=== PATIENT | male | born 1970 | race Caucasian/White ===

== ENCOUNTER → 2021-08-09 18:10 | Outpatient (CLI) | payer BC, SELFPAY ==
[2021-08-09 18:47] LABS: Alanine Aminotransferase 17 U/L (12-78); Albumin Level 4.3 g/dl (3.5-5.0); Albumin/Globulin Ratio 1.5 (1.1-1.8); Alkaline Phosphatase 84 U/L (38-126); Aspartate Amino Transferase 29 U/L (17-59); Basophils # 0.3 K/mm3 (0-0.2); Basophils % 2.4 % (0.1-2.0); Bilirubin,Total 0.4 mg/dl (0.2-1.3); Blood Urea Nitrogen 12 mg/dl (9-20); Calcium 9.8 mg/dl (8.4-10.2); Carbon Dioxide 29 mmol/L (22.0-30.0); Chloride 97 mmol/L (98-107); Chol/HDL Ratio 4.6 (1-3.5); Cholesterol 218 mg/dl (140-200); Eosinophils # 0.5 K/mm3 (0.0-0.4); Estimated Glomerular Filt Rate 102 ml/min (>60); GFR (African American) 124 ML/MIN (>60); Globulin 2.8 g/dL (1.3-3.2); Glucose 269 mg/dl (74-100); HDL Cholesterol 47 mg/dl (40-60); Hematocrit 47.1 % (42.0-52.0); Hemoglobin 15.9 g/dL (14.1-18.0); Lymphocytes # 2.7 K/mm3 (0.7-4.5); Lymphocytes % 25.7 % (10-50); Mean Corpuscular HGB Conc 33.7 g/dL (31.8-35.4); Mean Corpuscular Hemoglobin 28.6 pg (27.0-31.2); Mean Corpuscular Volume 84.9 fl (80-94); Mean Platelet Volume 9.2 fl (7.4-10.4); Monocytes # 0.5 K/mm3 (0.1-1.0); Monocytes % 4.7 % (1.7-9.3); Neutrophils # 6.5 K/mm3 (1.8-7.8); Neutrophils % 62.3 % (37.0-80.0); Platelet Count 266 K/mm3 (142-424); Red Blood Count 5.55 M/mm3 (4.60-6.20); Red Cell Distribution Width 13.9 % (11.5-17.5); Sodium 135 mmol/L (136-145); Total Protein,Serum 7.1 g/dl (6.3-8.2); Triglycerides 247 mg/dl (30-150); VLDL Cholesterol 49 mg/dL (0-40); White Blood Count 10.5 K/mm3 (4.8-10.8)
[2021-08-09 18:58] LABS: Direct LDL Cholesterol 147.61 mg/dL (100-129)
[2021-08-09 19:03] LABS: Free T4 (Free Thyroxine) 1.23 ng/dl (0.78-2.19)
[2021-08-09 19:04] LABS: 25-OH Vitamin D, Total 22.1 ng/mL (30-100)
[2021-08-09 19:18] LABS: Prostate Specific Ag Screen 0.4 ng/ml (0.0-4.0)
== END ==
PROVIDERS: Visit Provider Nurse Practitioner Family
DX: R10.9 Unspecified abdominal pain (principal); E55.9 Vitamin D deficiency, unspecified; Z12.5 Encounter for screening for malignant neoplasm of prostate
CPT/HCPCS: 80053; 80061; 82306; 84439; 84443; 85025; G0103

== ENCOUNTER → 2021-09-08 09:51 | Outpatient (CLI) | payer BC, SELFPAY ==
--- NOTE | 2021-09-08 09:52 | CT_ITS ---
PROCEDURE INFORMATION: Exam: CT Abdomen And Pelvis With Contrast Exam date and time: 09/08/2021 9:52 AM Age: 51 years old Clinical indication: Abdominal pain TECHNIQUE: Imaging protocol: Computed tomography of the abdomen and pelvis with contrast. Radiation optimization: All CT scans at this facility use at least one of these dose optimization techniques: automated exposure control; mA and/or kV adjustment per patient size (includes targeted exams where dose is matched to clinical indication); or iterative reconstruction. Contrast material: ISOVUE; Contrast volume: 75 ml; Contrast route: IV; COMPARISON: No relevant prior studies available. FINDINGS: Liver: No mass. Gallbladder and bile ducts: Unremarkable. No ductal dilation. Pancreas: Normal. No ductal dilation. Spleen: Normal. No splenomegaly. Adrenal glands: Normal. No mass. Kidneys and ureters: Normal. No hydronephrosis. Stomach and bowel: No acute findings. No obstruction. No mucosal thickening. Colonic diverticulosis without acute diverticulitis. Appendix: No evidence of appendicitis. Intraperitoneal space: Unremarkable. No free air. No significant fluid collection. Vasculature: No abdominal aortic aneurysm. Lymph nodes: No significant adenopathy. Urinary bladder: Unremarkable as visualized. Reproductive: Unremarkable as visualized. Bones/joints: No acute findings. Soft tissues: Unremarkable. IMPRESSION: No acute findings.
[2021-09-08 10:24] LABS: Blood Urea Nitrogen 7 mg/dl (9-20); Estimated Glomerular Filt Rate 102 ml/min (>60); GFR (African American) 124 ML/MIN (>60)
== END ==
PROVIDERS: PCP Emergency Medicine; Visit Provider Surgery
DX: R10.9 Unspecified abdominal pain (principal)
CPT/HCPCS: 36415; 74177; 82565; 84520; Q9967

== ENCOUNTER → 2022-02-08 09:37 | Outpatient (CLI) | payer BC, SELFPAY ==
--- NOTE | 2022-02-08 09:42 | US_ITS ---
FINAL REPORT CLINICAL HISTORY: flank pain FINDINGS: Sonographic images of the right upper quadrant were obtained. The pancreas is partially obscured.The liver has an unremarkable appearance. There is sludge in the gallbladder. There is no gallbladder wall thickening or pericholecystic fluid. There is no evidence of biliary ductal dilatation.The common duct measures 4mm. Limited images of the right kidney are unremarkable. IMPRESSION: Sludge in the gallbladder. Reviewed, Interpreted and Dictated by Abe Castle III, MD Transcribed by Katya Barber Authenticated and [facility]
== END ==
LOC: RAD 09:38
PROVIDERS: PCP Emergency Medicine; Visit Provider Emergency Medicine
DX: R10.9 Unspecified abdominal pain (principal)
CPT/HCPCS: 76705

== ENCOUNTER → 2022-02-13 16:22 | Outpatient (CLI) | payer BC, SELFPAY | PROVIDERS: PCP Emergency Medicine; Visit Provider Surgery | DX: U07.1 COVID-19 (principal) | CPT/HCPCS: C9803; U0003; U0005 ==

== ENCOUNTER → 2022-02-28 10:24 | Outpatient (CLI) | payer BC, SELFPAY ==
--- NOTE | 2022-02-28 10:24 | NM_ITS ---
FINAL REPORT CLINICAL HISTORY: abd pain, GB sludge 10:40am 8.05 MCI TC CHOLETEC 1.6 MCG CCK NO PAIN WITH CCK FINDINGS: Sequential anterior projection images of the abdomen were obtained after the intravenous injection of 8.05 mCi technetium 99m Choletec. There is normal uptake of radiotracer by the liver. The bile ducts are visualized by 15 minutes. Gallbladder activity is seen by 15 minutes. Bowel activity is noted by 30 minutes. After 1 hour, 1.6 ?g of CCK was injected intravenously for calculation of gallbladder ejection fraction. The gallbladder ejection fraction is 79%, which is within normal limits. IMPRESSION: No evidence of cystic duct or bile duct obstruction. Normal gallbladder ejection fraction of 79%. Reviewed, Interpreted and Dictated by Abe Castle III, MD Transcribed by Naz Lopez Authenticated and [facility]
--- NOTE | 2022-02-28 10:47 | HMH.ITSHM ---
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 []SILDENAFIL LISINOPRIL GLIPIZIDE SERTRALINE OMEPRAZOLE GABAPENTIN
== END ==
LOC: RAD 10:24
PROVIDERS: PCP Emergency Medicine; Visit Provider Emergency Medicine
DX: K82.8 Other specified diseases of gallbladder (principal); R10.9 Unspecified abdominal pain
CPT/HCPCS: 78227; A9537; J2805

== ENCOUNTER 2022-04-13 06:42 | Day surgery (SDC) | payer OTHER, SELFPAY ==
[2022-02-13 14:08] VITALS: BMI 26.4
[2022-04-12 08:34] VITALS: BMI 26.4
[2022-04-13] VITALS (7 sets, daily range): BP systolic 69–171; BP diastolic 36–108; PULSE 73–112; RESP 18; TEMP 36.1–36.2; O2SAT 96–100
--- NOTE | 2022-04-13 06:52 | HMH.GSHP ---
HPI HPI: Patient is a 52-year-old male from [place] scheduled for EGD and colonoscopy. I had previously seen him in the office in August 2021 a consultation for possible EGD and colonoscopy. At that time he stated that he had postprandial vomiting. He states that this has been going on for a while . He has some early satiety and nausea. He also has some symptoms of indigestion and occasional dysphagia. He is a diabetic. His symptoms are somewhat sporadic. At that time I was unsure as to the etiology of his symptoms and ordered a CT scan. Tentative plan was for EGD and colonoscopy if CT scan was unremarkable. CT scan was unremarkable. He has subsequently undergone gallbladder ultrasound and HIDA scan ordered by his primary care provider and these are unremarkable. He was scheduled for EGD and colonoscopy. [facility] History I have reviewed the patient's past medical history: Yes Medical History: Reports:: Diabetes Mellitus Type 1, Diabetes Mellitus Type 2, Hypertension Denies:: Cancer, Internal Pacemaker, MRSA *Have you ever received a pneumonia vaccine?: No *Have you received a flu vaccine this season?: No Other Surgeries: No: Pacemaker Amputation: No Fractures: No - *Social History Last grade of school completed: High school graduate Smoking Status: Current every day smoker Tobacco Type: cigarettes # Packs/Day (cigarettes): 1 Alcohol Intake: never Alcohol Intake Frequency:: holidays/special occasions only *Occupational Status:: employed *Travel in the last 8 weeks: None Family Hx:: No significant family history Review of Systems - Review of Systems Review of systems:: pertinent systems reviewed and negative unless documented below Meds Home Medications Medication Instructions Recorded Confirmed Type sildenafil 100 mg tablet 100 mg PO DAILY PRN #30 tab 09/04/21 02/13/22 Rx Gabapentin [Gabapentin 100mg Cap] 100 mg PO BID 02/13/22 02/13/22 History Omeprazole 40 mg PO DAILY 02/13/22 02/13/22 History [id number]/Sod Sulf,Bicarb,Cl/KCl 240 ml PO Q10M 02/13/22 02/13/22 History [[id number] and Electrolytes Soln] Sertraline HCl [Zoloft] 25 mg PO DAILY 02/13/22 02/13/22 History glipiZIDE [Glipizide] 10 mg PO DAILY 02/13/22 02/13/22 History lisinopriL [Lisinopril] 20 mg PO DAILY 02/13/22 02/13/22 History Allergies Allergy/AdvReac Type Severity Reaction Status Date / Time Sulfa (Sulfonamide AdvReac Verified 01/30/22 11:37 Antibiotics) Exam I & O for Last 24 hours: Intake & Output 04/10/22 04/11/22 04/12/22 04/13/22 11:59 11:59 11:59 11:59 Weight 174 lb - Constitutional no acute distress - *Routine HEENT Exam Head: Present: normocephalic Eye: Present: EOMI, PERRL ENT: Present: mucous membranes moist - *Routine Neck Exam Present: supple. Absent: lymphadenopathy - *Routine Respiratory Exam Present: CTA bilaterally - *Routine Cardiovascular Exam Present: RRR - *Routine Abdominal Exam Present: soft, normoactive bowel sounds. Absent: tenderness - *Routine Rectal Exam Rectal:: deferred - *Routine Genitalia Exam Genitalia:: deferred - *Routine Extremities Exam Absent: cyanosis, clubbing, edema - *Routine Skin Exam Present: warm. Absent: rash - *Routine Neurological Exam Present: alert, oriented X3 Assessment and Plan - Assessment and plan all Dx Assessment and Plan for all problems:: Plan to go ahead and proceed with EGD to investigate GI symptoms and colonoscopy for screening purposes
--- NOTE | 2022-04-13 07:13 | P.PN_ITS ---
[facility] Anesthesia Checklist - Patient Identification Patient Identification: Arm Band - Structural Data Admitted From: Home Planned Operative Procedure/s: Colonoscopy Consent for Planned Operative Procedure(s) Verified: Yes - NPO Status Verified Time NPO: 05:30 (Prep) - Airway Assessment C-Spine Mobility Assessed: Yes TMJ Mobility Assessed: Yes Dentition: Dentures-poor fitting - Neurological Assessment Level of Consciousness: Awake Hx Seizures: No Numbness or tingling in extremities: No - Anesthesia Plan Anesthesia Risk discussed: Yes Anesthesia Plan: Verified ASA Class: II Anesthesia Type: MAC [facility] History I have reviewed the patient's past medical history: Yes Medical History: Reports:: Diabetes Mellitus Type 1, Diabetes Mellitus Type 2, Hypertension Denies:: Cancer, Internal Pacemaker, MRSA, Seizures *Have you ever received a pneumonia vaccine?: No *Have you received a flu vaccine this season?: No Anesthesia experience/problems:: None Other Surgeries: No: Pacemaker Amputation: No Fractures: No - *Social History Last grade of school completed: High school graduate Smoking Status: Current every day smoker Tobacco Type: cigarettes # Packs/Day (cigarettes): 1 Alcohol Intake: never Alcohol Intake Frequency:: holidays/special occasions only Substance Use Type: denies use *Occupational Status:: employed *Travel in the last 8 weeks: None Family Hx:: No significant family history
[2022-04-13 07:14] LABS: POC Glucose,Bedside 202 (70-110)
--- NOTE | 2022-04-13 08:04 | P.PCN_ITS ---
- Procedure: Date: 04/13/22 Patient Date of :: 1970 Procedure Performed:: Esophagogastroduodenoscopy with biopsies Total colonoscopy with polypectomy by snare Indications:: Patient is a 52-year-old male from [place] scheduled for EGD and colonoscopy. I had previously seen him in the office in August 2021 a consultation for possible EGD and colonoscopy. At that time he stated that he had postprandial vomiting. He states that this has been going on for a while . He has some early satiety and nausea. He also has some symptoms of indigestion and occasional dysphagia. He is a diabetic. His symptoms are somewhat sporadic. At that time I was unsure as to the etiology of his symptoms and ordered a CT scan. Tentative plan was for EGD and colonoscopy if CT scan was unremarkable. CT scan was unremarkable. He has subsequently undergone gallbladder ultrasound and HIDA scan ordered by his primary care provider and these are unremarkable. He was scheduled for EGD and colonoscopy. Performing Provider:: Abe Solano MD Referring Provider:: Jovani Vasquez Sedation:: MAC sedation Procedure:: Patient was taken to endoscopy procedure room. He was positioned in lateral decubitus position. Attention was first turned to upper endoscopy. Adequate intravenous sedation was achieved. Olympus endoscope was inserted via the oropharynx. Esophagus was intubated. Overall esophagus appeared relatively unremarkable. Gastroesophageal junction was encountered at approximately 40 cm. Stomach was cannulated and insufflated. Retroflexion revealed no evidence of any hiatal hernia. He has some diffuse gastritis/gastropathy. Gastric antral mucosal biopsies obtained for CLOtest for H. pylori. Pylorus was traversed. There was some mild to moderate nonerosive duodenitis within the duodenal bulb which was biopsied. Endoscope was withdrawn into the stomach. Gastric antral mucosal biopsy was obtained for histopathologic analysis. A couple biopsies were obtained at the gastroesophageal junction to evaluate potential Torres's esophagus. Distal esophageal biopsies were obtained. Stomach was desufflated and the scope was withdrawn. Attention was then turned to colonoscopy. Variable stiffness Olympus colonoscope was inserted via the anus. Is advanced to the cecum. Colonic preparation was fair as there was some particulate liquid stool but decent visualization was achieved with irrigation and suctioning. Ileocecal valve and appendiceal orifice were clearly identified. There was a small adenomatous appearing polyp, sessile, in the cecum removed with cutting snare. Endoscope was slowly withdrawn through the colon with careful surveillance and irrigation and suctioning. He had some degree of pandiverticulosis. Retroflexion within the rectum revealed no evidence of any pathologic internal hemorrhoids. Colonoscope was withdrawn. Findings:: Overall normal-appearing esophagus Gastroesophageal junction at 40 cm Diffuse nonerosive gastropathy/gastritis Moderate nonerosive duodenitis within the duodenal bulb Pandiverticulosis Adenomatous appearing cecal polyp Recommendations:: His symptoms of postprandial nausea may be functional and or lifestyle related. Follow-up on biopsies and treat as indicated. If biopsies unremarkable and symptoms persist may consider gastric emptying scan to rule out gastroparesis. Regarding his colonoscopy, follow-up colonoscopy pending pathology findings. Potentially 3 years given the suboptimal preparation. Complications:: Not immediately apparent Estimated blood obtained (mL): 3
--- NOTE | 2022-04-13 08:27 | PC.NURSE ---
0803-Anesthesia at with nurses. Patient had feces all over and needed clean up. Changed sheets gown and cleaned patient with assistance from Terri
== END 2022-04-13 08:43 | disposition home or self-care (01) ==
LOC: OUTP 06:44
PROVIDERS: PCP Emergency Medicine; Visit Provider Surgery
PROC: 0DJ08ZZ Inspection of Upper Intestinal Tract, Via Natural or Artificial Opening Endoscopic (ICD-10-PCS; CPT 43235; principal; 2022-04-13 07:30)
DX: Z12.11 Encounter for screening for malignant neoplasm of colon (principal); K21.9 Gastro-esophageal reflux disease without esophagitis; K29.80 Duodenitis without bleeding; K63.5 Polyp of colon; I10 Essential (primary) hypertension; E11.9 Type 2 diabetes mellitus without complications; Z72.0 Tobacco use; Z79.899 Other long term (current) drug therapy
CPT/HCPCS: 43239; 45385; 82962; 87339

== ENCOUNTER → 2022-05-16 12:14 | Outpatient (CLI) | payer OTHER, SELFPAY ==
--- NOTE | 2022-05-16 12:17 | XR_ITS ---
FINAL REPORT CLINICAL HISTORY: right shoulder pain FINDINGS: RIGHT SHOULDER: 3 views of the right shoulder were obtained. There is no acute fracture or dislocation. There are mild degenerative changes of the acromioclavicular and the glenohumeral joints. There is no soft tissue abnormality. IMPRESSION: Mild degenerative changes. Reviewed, Interpreted and Dictated by Abe Castle III, MD Transcribed by Grady Wetzel Authenticated and [facility]
== END ==
LOC: RAD 12:15
PROVIDERS: PCP Emergency Medicine; Visit Provider Emergency Medicine
DX: M25.511 Pain in right shoulder (principal); M79.601 Pain in right arm
CPT/HCPCS: 73030

== ENCOUNTER → 2022-07-13 16:32 | Outpatient (CLI) | payer OTHER, SELFPAY ==
--- NOTE | 2022-07-13 16:32 | MR_ITS ---
PROCEDURE INFORMATION: Exam: MR Right Upper Extremity Joint Without Contrast; Shoulder Exam date and time: 07/13/2022 4:46 PM Age: 52 years old Clinical indication: Pain; Shoulder; Right; Additional info: Shoulder pain TECHNIQUE: Imaging protocol: Magnetic resonance imaging of the Right upper extremity without contrast. Exam focused on the shoulder. COMPARISON: CR XR SHOULDER RT MIN 2V 05/16/2022 12:28 PM FINDINGS: Bones/joints: No acute fracture. Mild degenerative changes of acromioclavicular joint. No dislocation. Few small cysts within greater tuberosity. Fluid: Small joint effusion. Small to moderate fluid within subacromial-subdeltoid bursa. Glenoid labrum: Degenerative-type tear of superior labrum. Supraspinatus tendon: Moderate to severe tendinosis. No full-thickness tear. Infraspinatus tendon: Moderate to severe tendinosis. No full-thickness tear. Subscapularis tendon: Moderate tendinosis. No full-thickness tear. Teres minor tendon: Mild tendinosis. No full-thickness tear. Tendon of biceps brachii: Severe tendinosis of intra-articular portion of tendon. Glenohumeral ligaments: Grossly intact. Muscles: Small cyst at infraspinatus musculotendinous junction. Soft tissues: Unremarkable. IMPRESSION: 1. Rotator cuff tendinosis. 2. Biceps tendinosis.
== END ==
LOC: RAD 16:32
PROVIDERS: PCP Emergency Medicine; Visit Provider Orthopaedic Surgery
DX: M75.41 Impingement syndrome of right shoulder (principal)
CPT/HCPCS: 73221

== ENCOUNTER 2022-08-09 09:46 | Outpatient (RCR) | payer OTHER, SELFPAY ==
--- NOTE | 2022-08-09 11:27 | HMH.PTOPEV ---
PT Outpatient Evaluation Rehab PT Outpatient Evaluation Start: 08/09/22 09:48 Freq: Status: Active Protocol: Document 08/09/22 09:48 ARSENIOLISA (Rec: 08/09/22 11:27 PDESEROUX [id number]) E-signed By Inocencio Long, PT Outpatient Therapy Subjective History Subjective History Pt. is a 52 year old male whom presents to [facility] Outpatient Physical Therapy Services in [place] for the initial evaluation this date( 08/09/22) w/ c/o chronic and constant RUE shldr. P!, catching/popping, and weakness of traumatic onset for a year . Pt. reports symptom onset one year ago after moving to [place]. Pt. states must've injured it during the move, but is unable to remember a specific injury. Pt. reports symptoms worsen with elevation and using it, reports having symptom relief w/ tyesha position. Pt. denies having in restrictions from Ortho. at this time. Pt. reports having no symptom relief w/ prescribed prednisone pack. Pt. also reports he is unable to get steroid injections secondary to DM-II. Recent diagnostic imaging(MRI) positive for RC tendinosis per pt. report. Pt. reports possible surgery if no symptom relief w/ Physical Therapy. Pt. RTMD 09/04/22. Current medications include Glipizide and Lisinopril. PMH includes DM-II, hx. of bronchitis, Hypertension, Hyperlipidemia. Pt. denies history of pacemaker, denies history of cancer(self), denies latex allergy, reports medicational allergy to sulfa drugs. Chief Complaint Pain,Clicks,Catches/Locks, Weakness Symptom Type Ache,Sharp,Stabbing,Shooting Symptoms Relieved By Rest/Positioning,Ice
== END 2022-09-12 16:40 | disposition home or self-care (01) ==
LOC: PT.CARL 09:46
PROVIDERS: PCP Emergency Medicine; Visit Provider Orthopaedic Surgery
DX: M25.511 Pain in right shoulder (principal)
CPT/HCPCS: 97010; 97014; 97035; 97110; 97163; G0283

== ENCOUNTER 2022-08-12 15:11 | Emergency (ER) | payer OTHER, SELFPAY ==
[2022-08-12 15:20] VITALS: BP 115/66; PULSE 118; RESP 18; TEMP 36.9; O2SAT 99; BMI 25.8
[2022-08-12 16:29] VITALS: BP 115/66; PULSE 118; RESP 18; TEMP 36.9; O2SAT 99; BMI 25.7
--- NOTE | 2022-08-12 16:29 | EXP.UTC ---
Discharge Plan Disposition Patient Disposition: Home, Self-Care Condition: Good Prescriptions Prescriptions: New azithromycin [Zithromax] 250 mg tablet 250 mg PO UD DOSE PK Qty: 6 0RF Rx Instructions: Take two (2) tablets today, then one (1) tablet days #2 thru #5 prednisone [prednisone] 20 mg tablet 20 mg PO DAILY 4 Days Qty: 4 0RF oseltamivir [Tamiflu] 75 mg capsule 75 mg PO BID Qty: 10 0RF No Action pantoprazole [Protonix] 40 mg tablet,delayed release (DR/EC) 40 mg PO DAILY Qty: 30 2RF prednisone 10 mg tablet See Rx Instructions .Route .COMPLEX Qty: 30 0RF Rx Instructions: Take 2 tablet twice daily for 5 days, then Take 1 tablet twice daily for 5 days; sildenafil [Viagra] 100 mg tablet 100 mg PO DAILY PRN (Reason: sexual activity) Qty: 30 0RF Rx Instructions: administer 30 minutes to 4 hours before activity famotidine 40 mg tablet 40 mg PO DAILY sucralfate [Carafate] 1 gram tablet 1 gm PO QACHS Qty: 120 2RF lisinopril 20 MG tablet 20 mg PO DAILY glipizide 10 MG tablet 10 mg PO DAILY sertraline 25 MG tablet 25 mg PO DAILY gabapentin 100 MG capsule 100 mg PO BID Referrals Follow up/Referrals: Leandro Vasquez MD [Primary Care Provider] - See instructions Activity Restrictions/Add. Instructions Additional Instructions/Restrictions: Drink plenty of fluids. Take tylenol or ibuprofen for pain or fever. Take the medications as directed. Follow up with your regular doctor. GO TO THE ER FOR ANY WORSENING SYMPTOMS Clinical Impressions Clinical Impression: Influenza A Stand Alone Forms Stand Alone Forms: Work/School Release Instructions Patient Instructions: DI for Influenza -- Adult, Oseltamivir Discharge ED Provider: Gregory Arias [facility] [place] General Stated complaint: sore throat, coughing blood, SOA Mode of Arrival: Ambulatory Source of Information: Patient Limitations: No Limitations Time Seen by Provider: 08/12/22 16:29 Description of Symptoms (Recalled from Triage Doc. by RN): . History of Present Illness Provider Complaint: She states that for the past 2 days she has had sore throat, chills, body aches and low grade fever. Related Data Home Medications Medication Instructions Recorded Confirmed gabapentin 100 mg capsule 100 mg PO BID Pain 02/13/22 07/26/22 glipizide 10 mg tablet 10 mg PO DAILY Diabetes 02/13/22 07/26/22 lisinopril 20 mg tablet 20 mg PO DAILY BP 02/13/22 07/26/22 sertraline 25 mg tablet 25 mg PO DAILY Depression 02/13/22 07/26/22 famotidine 40 mg tablet 40 mg PO DAILY 04/26/22 07/26/22 Previous Rx's Medication Instructions Recorded sildenafil 100 mg tablet (Viagra) 100 mg PO DAILY PRN sexual 09/04/21 activity #30 tabs pantoprazole 40 mg tablet,delayed 40 mg PO DAILY #30 tabs 04/26/22 release (Protonix) sucralfate 1 gram tablet (Carafate) 1 gm PO QACHS #120 tabs 04/26/22 prednisone 10 mg tablet See Rx Instructions .Route 05/16/22 .COMPLEX #30 tabs azithromycin 250 mg tablet 250 mg PO UD DOSE PK #6 tabs 08/12/22 (Zithromax) oseltamivir 75 mg capsule (Tamiflu) 75 mg PO BID #10 caps 08/12/22 prednisone 20 mg tablet 20 mg PO DAILY 4 days #4 tabs 08/12/22 Allergies Allergy/AdvReac Type Severity Reaction Status Date / Time Sulfa (Sulfonamide AdvReac Verified 07/26/22 16:10 Antibiotics) [facility] Disclaimer: The information contained in this section may have been updated after the patient was seen, as this information can be updated by other users. Social History Smoking Status: Current every day smoker tobacco type: cigarettes packs per day: 1 alcohol intake: current substance use type: denies use current occupational status: employed Travel in the last 8 weeks: None caffeine: No ROS Obtained: Yes All systems reviewed & no additional complaints except as documented Constitu
[2022-08-12 16:40] LABS: UTC Strep Screen (Rapid) Negative (Negative)
[2022-08-12 17:55] LABS: UTC Influenza A Antigen Positive (Negative)
[2022-08-12 17:56] LABS: UTC Influenza B Antigen Negative (Negative)
[2022-08-12 18:25] VITALS: BP 117/65; PULSE 71; RESP 16; TEMP 36.9
== END 2022-08-12 18:25 | disposition home or self-care (01) ==
PROVIDERS: Emergency Provider Nurse Practitioner Family; PCP Emergency Medicine
DX: J10.1 Influenza due to other identified influenza virus with other respiratory manifestations (principal)
CPT/HCPCS: 87804; 87880; 99212; G0463

== ENCOUNTER 2022-10-24 14:23 | Emergency (ER) | payer OTHER, SELFPAY ==
[2022-10-24 14:40] VITALS: BP 155/99; PULSE 139; RESP 20; TEMP 38.8; O2SAT 97; BMI 25.2
--- NOTE | 2022-10-24 14:44 | EXP.UTC ---
Discharge Plan Disposition Patient Disposition: Home, Self-Care Condition: Good Prescriptions Prescriptions: New benzonatate [benzonatate] 100 mg capsule 100 mg PO TIDP PRN (Reason: Cough) Qty: 30 0RF ondansetron 4 mg Tablet,Disintegrating 4 mg PO Q8H PRN (Reason: Nausea) Qty: 12 0RF No Action pantoprazole [Protonix] 40 mg tablet,delayed release (DR/EC) 40 mg PO DAILY Qty: 30 2RF sildenafil [Viagra] 100 mg tablet 100 mg PO DAILY PRN (Reason: sexual activity) Qty: 30 0RF Rx Instructions: administer 30 minutes to 4 hours before activity famotidine 40 mg tablet 40 mg PO DAILY sucralfate [Carafate] 1 gram tablet 1 gm PO QACHS Qty: 120 2RF lisinopril 20 MG tablet 20 mg PO DAILY glipizide 10 MG tablet 10 mg PO DAILY sertraline 25 MG tablet 25 mg PO DAILY gabapentin 100 MG capsule 100 mg PO BID Referrals Follow up/Referrals: Leandro Vasquez MD [Primary Care Provider] - See instructions Activity Restrictions/Add. Instructions Additional Instructions/Restrictions: Drink plenty of fluids. Take tylenol or ibuprofen for pain or fever. Take the medications as directed. Follow up with your regular doctor. GO TO THE ER FOR ANY WORSENING SYMPTOMS Clinical Impressions Clinical Impression: Acute viral syndrome Stand Alone Forms Stand Alone Forms: Work/School Release Instructions Patient Instructions: DI for Viral Syndrome Discharge ED Provider: Gregory Arias [facility] [place] General Stated complaint: weak since Saturday,diarrhea,achey Time Seen by Provider: 10/24/22 14:44 History of Present Illness Provider Complaint: He states that for the past 2 days he has had body aches, chills, low grade fever, and malaise. Related Data Home Medications Medication Instructions Recorded Confirmed gabapentin 100 mg capsule 100 mg PO BID Pain 02/13/22 07/26/22 glipizide 10 mg tablet 10 mg PO DAILY Diabetes 02/13/22 07/26/22 lisinopril 20 mg tablet 20 mg PO DAILY BP 02/13/22 07/26/22 sertraline 25 mg tablet 25 mg PO DAILY Depression 02/13/22 07/26/22 famotidine 40 mg tablet 40 mg PO DAILY 04/26/22 07/26/22 Previous Rx's Medication Instructions Recorded sildenafil 100 mg tablet (Viagra) 100 mg PO DAILY PRN sexual 09/04/21 activity #30 tabs pantoprazole 40 mg tablet,delayed 40 mg PO DAILY #30 tabs 04/26/22 release (Protonix) sucralfate 1 gram tablet (Carafate) 1 gm PO QACHS #120 tabs 04/26/22 benzonatate 100 mg capsule 100 mg PO TIDP PRN Cough #30 caps 10/24/22 ondansetron 4 mg disintegrating 4 mg PO Q8H PRN Nausea #12 tabs 10/24/22 tablet Allergies Allergy/AdvReac Type Severity Reaction Status Date / Time Sulfa (Sulfonamide AdvReac Verified 10/24/22 14:52 Antibiotics) [facility] Disclaimer: The information contained in this section may have been updated after the patient was seen, as this information can be updated by other users. Social History Smoking Status: Current every day smoker tobacco type: cigarettes packs per day: 1 alcohol intake: current substance use type: denies use current occupational status: employed Travel in the last 8 weeks: None caffeine: No ROS Obtained: Yes All systems reviewed & no additional complaints except as documented Constitutional Constitutional: Reports chills and Reports fever(s) Eyes Eyes: Denies eye discharge ENT Ears, Nose, Mouth, and Throat: Reports as per HPI Cardiovascular Cardiovascular: Denies chest pain Respiratory Respiratory: Denies chest congestion and Reports cough Gastrointestinal Gastrointestingal: Reports nausea; Denies abdominal pain, constipation, cramping, diarrhea or vomiting Musculoskeletal Musculoskeletal: Denies arthralgias Integumentary/Breasts Skin/Breast: Denies rash Neurologic Neurologic: Denies paresthesias Physical Exam General General appearance: alert and in no apparent distre
[2022-10-24 14:47] LABS: UTC Influenza A Antigen Negative (Negative); UTC Influenza B Antigen Negative (Negative)
[2022-10-24 15:33] VITALS: BP 155/99; PULSE 139; RESP 20; TEMP 38; O2SAT 97
== END 2022-10-24 15:32 | disposition home or self-care (01) ==
PROVIDERS: Emergency Provider Nurse Practitioner Family; PCP Emergency Medicine
DX: B34.9 Viral infection, unspecified (principal); R53.1 Weakness; R19.7 Diarrhea, unspecified; R50.9 Fever, unspecified
CPT/HCPCS: 87804; 99212; 99213; C9803; G0463; U0003; U0005

== ENCOUNTER → 2023-06-10 23:29 | Outpatient (CLI) | payer OTHER, SELFPAY ==
[2023-06-10 19:03] LABS: Microalbumin/Creatinine Ratio 23.7
[2023-06-10 19:04] LABS: Alanine Aminotransferase 17 U/L (12-78); Albumin Level 4.2 g/dl (3.5-5.0); Albumin/Globulin Ratio 1.4 (1.1-1.8); Alkaline Phosphatase 86 U/L (38-126); Anion Gap 15.1 mEq/L (5-15); Aspartate Amino Transferase 25 U/L (17-59); Bilirubin,Total 0.6 mg/dl (0.2-1.3); Blood Urea Nitrogen 12 mg/dl (9-20); Calcium 9.2 mg/dl (8.4-10.2); Carbon Dioxide 26 mmol/L (22.0-30.0); Chloride 97 mmol/L (98-107); Estimated Glomerular Filt Rate 102 ml/min (>60); GFR (African American) 123 ML/MIN (>60); Globulin 3.1 g/dL (1.3-3.2); Glucose 261 mg/dl (74-100); Potassium 4.1 mmoL/L (3.5-5.1); Sodium 134 mmol/L (136-145); Total Protein,Serum 7.3 g/dl (6.3-8.2)
[2023-06-10 19:17] LABS: Creatinine,Urine Random 72 mg/dL (Not Estab.)
[2023-06-10 19:22] LABS: 25-OH Vitamin D, Total 18.1 ng/mL (30-100)
[2023-06-10 19:27] LABS: Basophils # 0.1 K/mm3 (0-0.2); Basophils % 1.4 % (0.1-2.0); Eosinophils # 0.5 K/mm3 (0.0-0.4); Eosinophils % 5.8 % (0.1-12.0); Hemoglobin 16.5 g/dL (14.1-18.0); Lymphocytes # 2.6 K/mm3 (0.7-4.5); Lymphocytes % 27.6 % (10-50); Mean Corpuscular HGB Conc 32.3 g/dL (31.8-35.4); Mean Corpuscular Hemoglobin 27.8 pg (27.0-31.2); Mean Corpuscular Volume 86.1 fl (80-94); Monocytes # 0.5 K/mm3 (0.1-1.0); Monocytes % 5.5 % (1.7-9.3); Neutrophils # 5.5 K/mm3 (1.8-7.8); Neutrophils % 59.7 % (37.0-80.0); Platelet Count 226 K/mm3 (142-424); Red Blood Count 5.92 M/mm3 (4.60-6.20); Red Cell Distribution Width 13.4 % (11.5-17.5); White Blood Count 9.2 K/mm3 (4.8-10.8)
[2023-06-10 19:36] LABS: Thyroid Stimulating Hormone 4.01 uIU/mL (0.465-4.68)
[2023-06-10 21:21] LABS: Hemoglobin A1C 11.4 % (4.0-6.0)
== END ==
LOC: LAB.DROPOF 23:29
PROVIDERS: PCP Emergency Medicine; Visit Provider Internal Medicine
DX: E11.9 Type 2 diabetes mellitus without complications (principal); E55.9 Vitamin D deficiency, unspecified; Z79.84 Long term (current) use of oral hypoglycemic drugs; Z79.899 Other long term (current) drug therapy
CPT/HCPCS: 80053; 82043; 82306; 82570; 83036; 84443; 85025

== ENCOUNTER → 2023-07-01 06:31 | Outpatient (CLI) | payer OTHER, SELFPAY ==
[2023-07-01 20:29] LABS: Chol/HDL Ratio 4.3 (1-3.5); Cholesterol 168 mg/dl (140-200); HDL Cholesterol 39 mg/dl (40-60); Triglycerides 99 mg/dl (30-150); VLDL Cholesterol 20 mg/dL (0-40)
[2023-07-01 20:40] LABS: Direct LDL Cholesterol 106.53 mg/dL (100-129)
[2023-07-01 21:01] LABS: Hemoglobin A1C 10.5 % (4.0-6.0)
== END ==
LOC: LAB.DROPOF 07-02 06:32
PROVIDERS: PCP Internal Medicine; Visit Provider Internal Medicine
DX: E11.9 Type 2 diabetes mellitus without complications (principal); Z79.84 Long term (current) use of oral hypoglycemic drugs
CPT/HCPCS: 80061; 83036

== ENCOUNTER → 2023-07-22 10:25 | Outpatient (CLI) | payer OTHER, SELFPAY ==
[2023-07-22 19:54] LABS: Hemoglobin A1C 9.3 % (4.0-6.0)
== END ==
LOC: LAB.DROPOF 07-23 10:26
PROVIDERS: PCP Internal Medicine; Visit Provider Internal Medicine
DX: E11.319 Type 2 diabetes mellitus with unspecified diabetic retinopathy without macular edema (principal); Z79.84 Long term (current) use of oral hypoglycemic drugs
CPT/HCPCS: 83036

== ENCOUNTER 2023-09-12 11:54 | Emergency (ER) | payer OTHER, SELFPAY ==
[2023-09-12 12:40] VITALS: BP 114/82; PULSE 125; RESP 18; TEMP 37.3; O2SAT 97; BMI 27.6
[2023-09-12 12:54] LABS: UTC Influenza A Antigen Negative (Negative); UTC Influenza B Antigen Negative (Negative)
--- NOTE | 2023-09-12 12:57 | EXP.UTC ---
Discharge Plan Disposition Patient Disposition: Home, Self-Care Condition: Good Prescriptions Prescriptions: New azithromycin [Zithromax] 250 mg tablet 250 mg PO UD DOSE PK Qty: 6 0RF Rx Instructions: Take two (2) tablets today, then one (1) tablet days #2 thru #5 benzonatate [benzonatate] 100 mg capsule 100 mg PO TIDP PRN (Reason: Cough) Qty: 30 0RF methylprednisolone 4 mg Tablets,Dose Pack 4 mg PO DIRECTED 6 Days Qty: 21 0RF Rx Instructions: Take 1 pack as directed for 6 days No Action lisinopril 20 mg tablet 20 mg PO DAILY 30 Days Qty: 30 2RF tadalafil 5 mg tablet 5 mg PO DAILY PRN (Reason: sexual activity) 30 Days Qty: 10 3RF Rx Instructions: administer approximately 30min before sexual activity; do not use more than 1 dose per 24hrs metformin 500 mg tablet 500 mg PO BID 30 Days Qty: 60 4RF Rx Instructions: Patient to stop the glipizide Referrals Follow up/Referrals: David Reece DO [Primary Care Provider] - See instructions Activity Restrictions/Add. Instructions Additional Instructions/Restrictions: Drink plenty of fluids. Take tylenol or ibuprofen for pain or fever. Take the medications as directed. Follow up with your regular doctor. GO TO THE ER FOR ANY WORSENING SYMPTOMS Clinical Impressions Clinical Impression: Acute viral syndrome, Bronchitis Stand Alone Forms Stand Alone Forms: Work/School Release Instructions Patient Instructions: DI for Acute Bronchitis, DI for Viral Syndrome Discharge ED Provider: Gregory Arias [facility] General Stated complaint: body aches, headache, cough Mode of Arrival: Ambulatory Source of Information: Patient Limitations: No Limitations Time Seen by Provider: 09/12/23 12:57 Description of Symptoms (Recalled from Triage Doc. by RN): cough, and body aches HEENT Symptoms (Recalled from RN notes): Yes Resp Symptoms (Recalled from RN notes): No Skin Symptoms (Recalled from RN notes): No MS Symptoms (Recalled from RN notes): No Functional Status (Recalled from RN notes): n/a History of Present Illness Provider Complaint: He states that for the past 2 days he has had chills, body aches, sinus congestion and chest congestion. He has been exposed to influenza. Related Data Previous Rx's Medication Instructions Recorded lisinopril 20 mg tablet 20 mg PO DAILY BP 30 days #30 tabs 06/10/23 metformin 500 mg tablet 500 mg PO BID Diabetes 30 days #60 07/01/23 tabs tadalafil 5 mg tablet 5 mg PO DAILY PRN sexual activity 07/01/23 30 days #10 tabs azithromycin 250 mg tablet 250 mg PO UD DOSE PK #6 tabs 09/12/23 (Zithromax) benzonatate 100 mg capsule 100 mg PO TIDP PRN Cough #30 caps 09/12/23 methylprednisolone 4 mg tablets in 4 mg PO DIRECTED 6 days #21 tabs 09/12/23 a dose pack Allergies Allergy/AdvReac Type Severity Reaction Status Date / Time Sulfa (Sulfonamide AdvReac Verified 09/12/23 12:55 Antibiotics) Worker's Comp Is this a Worker's Comp case?: No [facility] Disclaimer: The information contained in this section may have been updated after the patient was seen, as this information can be updated by other users. Social History Smoking Status: Current every day smoker tobacco type: cigarettes packs per day: 1 and e-cigarettes alcohol intake: current substance use type: denies use current occupational status: employed Travel in the last 8 weeks: None caffeine: No ROS Obtained: Yes All systems reviewed & no additional complaints except as documented Constitutional Constitutional: Reports chills and Reports fever(s) Eyes Eyes: Denies eye discharge ENT Ears, Nose, Mouth, and Throat: Reports as per HPI Cardiovascular Cardiovascular: Denies chest pain Respiratory Respiratory: Denies chest congestion and Reports cough Gastrointestinal Gastrointestingal: Reports nausea; Denies abdominal pain, constipation, cramping, diarrhea or vomiting Musculoskeletal Musculoskeletal: Denies arthralgias Integumentary/Breasts Skin/Breast: Denies rash Neurologic Neurologic: Denies paresthesias Physical Exam General General appearance: alert and in no apparent distress Head Head exam: atraumatic, normocephalic and normal inspection Eye Eye exam: Present normal appearance, PERRL and EOMI ENT ENT exam: Present normal exam, normal oropharynx, mucous membranes moist, TM's normal bilaterally and normal external ear exam Neck Neck exam: Present normal inspection, full ROM and trachea midline; Absent meningismus or lymphadenopathy Chest Chest inspection: Present normal inspection and symmetric chest wall rise; Absent tenderness Respiratory Respiratory exam: Present normal lung sounds bilaterally; Absent respiratory distress Cardiovascular Cardiovascular exam: Present regular rate and normal rhythm; Absent JVD Abdominal Exam Abdominal exam: Present soft and normal bowel sounds; Absent distention, tenderness or guarding Extremities Exam Extremities exam: Present normal inspection, full ROM and normal capillary refill; Absent calf tenderness Back Exam Back exam: Present normal inspection; Absent tenderness Neurological Exam Neurological exam: Present alert and oriented X3 Psychiatric Psychiatric exam: Present normal affect and normal mood Skin Skin exam: Present warm, dry, intact and normal color Lymphatic Lymphatic Findings: no adenopathy Medical Decision Making Medical Records Medical records reviewed: No I reviewed the patient's medical records. Bladimir Inquiry Pt receiving controlled substance: No Vital Signs: 09/12/23 12:40 Temperature 99.1 F Temperature Source Oral Pulse Rate [Right Radial] 125 H Respiratory Rate 18 Blood Pressure [Right Arm] 114/82 Blood Pressure Mean [Right Arm] 92 Blood Pressure Source [Right Arm] Automatic Cuff Blood Pressure Position [Right Arm] Sitting 02 Sat by Pulse Oximetry 97 Oxygen Delivery Method Room Air Lab Data Lab results reviewed: Yes I reviewed the patient's lab results. Lab Results 09/12/23 12:53: Influenza Type A Ag Negative, Influenza Type B Ag Negative
[2023-09-12 13:33] VITALS: BP 114/82; PULSE 125; RESP 18; TEMP 37.3; O2SAT 97
== END 2023-09-12 13:33 | disposition home or self-care (01) ==
PROVIDERS: Emergency Provider Nurse Practitioner Family; PCP Internal Medicine
DX: J40 Bronchitis, not specified as acute or chronic (principal); B34.9 Viral infection, unspecified; R51.9 Headache, unspecified; R05.9 Cough, unspecified; F17.210 Nicotine dependence, cigarettes, uncomplicated
CPT/HCPCS: 87635; 87804; 99212; 99214; G0463

== ENCOUNTER 2023-09-20 13:50 | Emergency (ER) | payer OTHER, SELFPAY ==
[2023-09-20 13:51] VITALS: BP 153/96; PULSE 104; RESP 16; TEMP 36.7; O2SAT 97; BMI 27.4
[2023-09-20 14:00] VITALS: BP 137/89; PULSE 99; O2SAT 97
--- NOTE | 2023-09-20 14:06 | ED_ITS ---
Discharge Plan Disposition Patient Disposition: Home, Self-Care Prescriptions Prescriptions: New azithromycin 250 mg tablet See Rx Instructions .ROUTE .COMPLEX Qty: 6 0RF Rx Instructions: For 250 mg dose pack: take 500 mg today (day 1), then 250 mg for 4 days (days 2-5). Do not combine with other azithromycin if you are already taken a course. prednisone 50 mg tablet 50 mg PO DAILY 5 Days Qty: 5 0RF cefdinir 300 mg capsule 300 mg PO BID 7 Days Qty: 14 0RF No Action lisinopril 20 mg tablet 20 mg PO DAILY 30 Days Qty: 30 2RF tadalafil 5 mg tablet 5 mg PO DAILY PRN (Reason: sexual activity) 30 Days Qty: 10 3RF Rx Instructions: administer approximately 30min before sexual activity; do not use more than 1 dose per 24hrs metformin 500 mg tablet 500 mg PO BID 30 Days Qty: 60 4RF Rx Instructions: Patient to stop the glipizide azithromycin [Zithromax] 250 mg tablet 250 mg PO UD DOSE PK Qty: 6 0RF Rx Instructions: Take two (2) tablets today, then one (1) tablet days #2 thru #5 benzonatate [benzonatate] 100 mg capsule 100 mg PO TIDP PRN (Reason: Cough) Qty: 30 0RF methylprednisolone 4 mg Tablets,Dose Pack 4 mg PO DIRECTED 6 Days Qty: 21 0RF Rx Instructions: Take 1 pack as directed for 6 days Referrals Follow up/Referrals: David Reece DO [Primary Care Provider] - See instructions Activity Restrictions/Add. Instructions Additional Instructions/Restrictions: At this time it was felt you are safe to be discharged home. If new or worsening symptoms please do not hesitate to return the emergency department. If symptoms persist please follow-up with your family doctor as you are able. Please take your medications as prescribed. Cefdinir sent to pharmacy, twice daily for 7 days. Also take azithromycin and prednisone as prescribed. Clinical Impressions Clinical Impression: Wheezing, Viral respiratory infection Discharge ED Provider: Lamberto Castillo General Adult HPI <Rishi Almaraz MD - Last Filed: 09/20/23 15:56> General Chief complaint: Upper Respiratory Infection Stated complaint: cough, soa Time Seen by Provider: 09/20/23 13:58 Mode of Arrival: Ambulatory Source of Information: Patient Limitations: No Limitations Description of Symptoms (Recalled from ER Triage Doc. by RN): Patient states he was seen last week for cough and congestion. States he was diagnosed with Bronchitis. Returns today stating he isn't any better and has now lost his voice as well. History of Present Illness HPI narrative: Patient is a 53-year-old male with past medical history of [id number] diabetes who presents emergency department for evaluation of shortness of breath. Onset was acute, over the last 7 days. There is associated cough and congestion. No chest pain with the exception of deep expiration on cough. He was diagnosed with bronchitis recently. Due to persistent symptoms he presents here for continued evaluation. Related Data Previous Rx's Medication Instructions Recorded lisinopril 20 mg tablet 20 mg PO DAILY BP 30 days #30 tabs 06/10/23 metformin 500 mg tablet 500 mg PO BID Diabetes 30 days #60 07/01/23 tabs tadalafil 5 mg tablet 5 mg PO DAILY PRN sexual activity 07/01/23 30 days #10 tabs azithromycin 250 mg tablet 250 mg PO UD DOSE PK #6 tabs 09/12/23 (Zithromax) benzonatate 100 mg capsule 100 mg PO TIDP PRN Cough #30 caps 09/12/23 methylprednisolone 4 mg tablets in 4 mg PO DIRECTED 6 days #21 tabs 09/12/23 a dose pack azithromycin 250 mg tablet See Rx Instructions PO .COMPLEX 09/20/23 Bronchitis #6 tabs cefdinir 300 mg capsule 300 mg PO BID 7 days #14 caps 09/20/23 prednisone 50 mg tablet 50 mg PO DAILY wheezing 5 days #5 09/20/23 tabs Allergies Allergy/AdvReac Type Severity Reaction Status Date / Time Sulfa (Sulfonamide AdvReac Verified 09/12/23 12:55 Antibiotics) [facility] <Rishi Almaraz MD - Last Filed: 09/20/23 15:56> [facility] Disclaimer: The information contained in this section may have been updated after the patient was seen, as this information can be updated by other users. Social History Smoking Status: Current every day smoker tobacco type: cigarettes packs per day: 1 and e-cigarettes alcohol intake: current substance use type: denies use current occupational status: employed Travel in the last 8 weeks: None caffeine: No <Rishi Almaraz MD - Last Filed: 09/20/23 15:56> ROS Obtained: Yes Systems reviewed as appropriate & no additional complaints e xcept as documented Physical Exam <Rishi Almaraz MD - Last Filed: 09/20/23 15:56> General General appearance: alert and in no apparent distress Head Head exam: atraumatic and normocephalic Eye Eye exam: Present PERRL and EOMI ENT ENT exam: Present mucous membranes moist Neck Neck exam: Present normal inspection Chest Chest inspection: Present normal inspection and symmetric chest wall rise Respiratory Respiratory exam: Present wheezes (Expiratory phase); Absent respiratory distress Cardiovascular Cardiovascular exam: Present normal rhythm and tachycardia Abdominal Exam Abdominal exam: Present soft; Absent tenderness Extremities Exam Extremities exam: Present normal inspection Neurological Exam Neurological exam: Present alert Psychiatric Psychiatric exam: Present normal affect Skin Skin exam: Present warm and dry Medical Decision Making <Rishi Almaraz MD - Last Filed: 09/20/23 15:56> Bladimir Inquiry Pt receiving controlled substance: No Vital Signs: 09/20/23 13:51 09/20/23 14:00 09/20/23 15:00 Temperature 98.1 F Temperature Source Oral Pulse Rate 99 H 116 H Pulse Rate [Radial] 104 H Respiratory Rate 16 18 Blood Pressure 137/89 143/82 H Blood Pressure [Right Arm] 153/96 H Blood Pressure Mean 101 Blood Pressure Mean [Right Arm] 115 Blood Pressure Source [Right Arm] Automatic Cuff Blood Pressure Position [Right Arm] Sitting 02 Sat by Pulse Oximetry 97 97 97 Oxygen Delivery Method Room Air Room Air 09/20/23 16:00 Temperature Temperature Source Pulse Rate 106 H Pulse Rate [Radial] Respiratory Rate 18 Blood Pressure 132/68 Blood Pressure [Right Arm] Blood Pressure Mean 89 Blood Pressure Mean [Right Arm] Blood Pressure Source [Right Arm] Blood Pressure Position [Right Arm] 02 Sat by Pulse Oximetry 95 Oxygen Delivery Method Lab Data Lab Results 09/20/23 14:09: SARS-CoV-2 (PCR) Not detected, Influenza A Untype (PCR) Not detected, Influenza Type B (PCR) Not detected 09/20/23 14:10: WBC 15.5 H, RBC 4.89, Hgb 13.8 L, Hct 41.8 L, MCV 85.6, MCH 28.2, MCHC 32.9, RDW 13.8, Plt Count 418, MPV 7.6, Neut % (Auto) 75.0, Lymph % (Auto) 15.6, Forrest % (Auto) 6.6, Eos % (Auto) 2.0, Baso % (Auto) 0.9, Neut # (Auto) 11.7 H, Lymph # (Auto) 2.4, Forrest # (Auto) 1.0, Eos # (Auto) 0.3, Baso # (Auto) 0.1, Total Counted 100, Neutrophils % (Manual) 73, Lymphocytes % (Manual) 22, Monocytes % (Manual) 5, Platelet Estimate Normal, RBC Morphology Normal, D- Dimer 0.46, Sodium 130 L, Potassium 4.5, Chloride 97 L, Carbon Dioxide 33 H, Anion Gap 4.5 L, BUN 11, Creatinine 0.90, Estimated Creat Clear 115, Estimated GFR 89, Est GFR ( Amer) 107, Glucose 263 H, Calcium 8.5, Total Bilirubin 0.5, AST 19, ALT 19, Alkaline Phosphatase 77, Total Protein 6.8, Albumin 3.4 L, Globulin 3.4 H, Albumin/Globulin Ratio 1.0 L 09/20/23 14:10 09/20/23 14:10 Orders (Tests/Meds): ED MEDICATIONS Generic Name Dose Route Start Last Admin Trade Name Freq PRN Reason Stop Dose Admin Ceftriaxone Sodium 2 gm/ 100 mls @ 200 mls/hr 09/20/23 16:03 09/20/23 16:09 Sodium Chloride IV 09/20/23 16:32 200 mls/hr ONCE ONE Administration Discontinued Medications Generic Name Dose Route Start Last Admin Trade Name Freq PRN Reason Stop Dose Admin Albuterol/Ipratropium 6 ml 09/20/23 14:05 09/20/23 14:12 Ipratropium/Albuterol 3 Ml Neb IH 09/20/23 14:06 6 ml ONCE ONE Administration Lactated Ringer's 1,000 mls @ 999 mls/hr 09/20/23 14:05 09/20/23 14:12 Lactated Ringer's 1000 Ml Bag IV 09/20/23 15:05 999 mls/hr .Q1H1M ONE Administration Methylprednisolone Sodium Succinate 125 mg 09/20/23 14:05 09/20/23 14:12 Methylprednisolone Sod Succ 125mg Vial IV 09/20/23 14:06 125 mg ONCE ONE Administration ORDERS Category Date Time Status CXR 2 view (NOT portable) [XR chest 2V] Stat Exams 09/20/23 15:35 Taken CBC w/Auto Diff [Complete Blood Count Auto Diff] Stat Lab 09/20/23 14:10 Completed CMP [Comprehensive Metabolic Panel] Stat Lab 09/20/23 14:10 Completed D-Dimer Stat Lab 09/20/23 14:10 Completed Rapid PCR Covid and Flu A/B Stat Lab 09/20/23 14:09 Completed EKG Request [ECG Request] Stat Y 09/20/23 14:06 Ordered ECG Data Tracing #1: Independently interpreted by me, rate is 101, rhythm is regular, axis is normal, no ST elevation in anatomical contiguous leads, right bundle branch block, QTc 398. Medical Decision Narrative: In summary patient is a 53-year-old male with past medical history described above who presents emergency department for evaluation of shortness of breath and cough. Patient is hemodynamically stable nontoxic-appearing upon arrival, afebrile, slight tachycardia. Differential diagnosis includes COPD exacerbation, pneumonia, pulmonary embolism, among others. Workup will be conducted with hematologic labs, EKG, D-dimer, chest x-ray. Initial inventions include methylprednisolone, DuoNebs x 2. Initial workup reviewed by me, hematologic labs are nonactionable. Upon repeat evaluation patient had significant improvement of wheezing and respiratory status, saturating well on room air. Chest x-ray pending at time of transfer of care to the oncoming physician, Dr. Castillo. I anticipate patient will be able to be discharged with treatment for COPD exacerbation with azithromycin and prednisone which will be prescribed by me. <Lamberto Castillo MD - Last Filed: 09/20/23 16:14> Vital Signs: 09/20/23 13:51 09/20/23 14:00 09/20/23 15:00 Temperature 98.1 F Temperature Source Oral Pulse Rate 99 H 116 H Pulse Rate [Radial] 104 H Respiratory Rate 16 18 Blood Pressure 137/89 143/82 H Blood Pressure [Right Arm] 153/96 H Blood Pressure Mean 101 Blood Pressure Mean [Right Arm] 115 Blood Pressure Source [Right Arm] Automatic Cuff Blood Pressure Position [Right Arm] Sitting 02 Sat by Pulse Oximetry 97 97 97 Oxygen Delivery Method Room Air Room Air 09/20/23 16:00 Temperature Temperature Source Pulse Rate 106 H Pulse Rate [Radial] Respiratory Rate 18 Blood Pressure 132/68 Blood Pressure [Right Arm] Blood Pressure Mean 89 Blood Pressure Mean [Right Arm] Blood Pressure Source [Right Arm] Blood Pressure Position [Right Arm] 02 Sat by Pulse Oximetry 95 Oxygen Delivery Method Lab Data Lab Results 09/20/23 14:09: SARS-CoV-2 (PCR) Not detected, Influenza A Untype (PCR) Not detected, Influenza Type B (PCR) Not detected 09/20/23 14:10: WBC 15.5 H, RBC 4.89, Hgb 13.8 L, Hct 41.8 L, MCV 85.6, MCH 28.2, MCHC 32.9, RDW 13.8, Plt Count 418, MPV 7.6, Neut % (Auto) 75.0, Lymph % (Auto) 15.6, Forrest % (Auto) 6.6, Eos % (Auto) 2.0, Baso % (Auto) 0.9, Neut # (Auto) 11.7 H, Lymph # (Auto) 2.4, Forrest # (Auto) 1.0, Eos # (Auto) 0.3, Baso # (Auto) 0.1, Total Counted 100, Neutrophils % (Manual) 73, Lymphocytes % (Manual) 22, Monocytes % (Manual) 5, Platelet Estimate Normal, RBC Morphology Normal, D- Dimer 0.46, Sodium 130 L, Potassium 4.5, Chloride 97 L, Carbon Dioxide 33 H, Anion Gap 4.5 L, BUN 11, Creatinine 0.90, Estimated Creat Clear 115, Estimated GFR 89, Est GFR ( Amer) 107, Glucose 263 H, Calcium 8.5, Total Bilirubin 0.5, AST 19, ALT 19, Alkaline Phosphatase 77, Total Protein 6.8, Albumin 3.4 L, Globulin 3.4 H, Albumin/Globulin Ratio 1.0 L Orders (Tests/Meds): ED MEDICATIONS Generic Name Dose Route Start Last Admin Trade Name Freq PRN Reason Stop Dose Admin Ceftriaxone Sodium 2 gm/ 100 mls @ 200 mls/hr 09/20/23 16:03 09/20/23 16:09 Sodium Chloride IV 09/20/23 16:32 200 mls/hr ONCE ONE Administration Discontinued Medications Generic Name Dose Route Start Last Admin Trade Name Freq PRN Reason Stop Dose Admin Albuterol/Ipratropium 6 ml 09/20/23 14:05 09/20/23 14:12 Ipratropium/Albuterol 3 Ml Neb IH 09/20/23 14:06 6 ml ONCE ONE Administration Lactated Ringer's 1,000 mls @ 999 mls/hr 09/20/23 14:05 09/20/23 14:12 Lactated Ringer's 1000 Ml Bag IV 09/20/23 15:05 999 mls/hr .Q1H1M ONE Administration Methylprednisolone Sodium Succinate 125 mg 09/20/23 14:05 09/20/23 14:12 Methylprednisolone Sod Succ 125mg Vial IV 09/20/23 14:06 125 mg ONCE ONE Administration ORDERS Category Date Time Status CXR 2 view (NOT portable) [XR chest 2V] Stat Exams 09/20/23 15:35 Taken CBC w/Auto Diff [Complete Blood Count Auto Diff] Stat Lab 09/20/23 14:10 Completed CMP [Comprehensive Metabolic Panel] Stat Lab 09/20/23 14:10 Completed D-Dimer Stat Lab 09/20/23 14:10 Completed Rapid PCR Covid and Flu A/B Stat Lab 09/20/23 14:09 Completed EKG Request [ECG Request] Stat Y 09/20/23 14:06 Ordered Medical Decision Narrative: In summary patient is a 53-year-old male with past medical history described above who presents emergency department for evaluation of shortness of breath and cough. Patient is hemodynamically stable nontoxic-appearing upon arrival, afebrile, slight tachycardia. Differential diagnosis includes COPD exacerbation, pneumonia, pulmonary embolism, among others. Workup will be conducted with hematologic labs, EKG, D-dimer, chest x-ray. Initial inventions include methylprednisolone, DuoNebs x 2. Initial workup reviewed by me, hematologic labs are nonactionable. Upon repeat evaluation patient had significant improvement of wheezing and respiratory status, saturating well on room air. Chest x-ray pending at time of transfer of care to the oncoming physician, Dr. Castillo. I anticipate patient will be able to be discharged with treatment for COPD exacerbation with azithromycin and prednisone which will be prescribed by me. Anna: I assume primary responsibility for this patient after signout from previous physician. Workup independently interpreted. Patient does have a leukocytosis of 15.5 with neutrophilic shift. Tachycardic and still feels pretty badly. Was given DuoNeb and methylprednisolone. Chest x-ray independently interpreted. Patient does have right lower lobe streaking concerning for developing pneumonia, especially in light of his symptoms. Given first dose ceftriaxone here. Because patient at baseline without signs or symptoms of clinical decompensation, deemed appropriate for discharge. Results were relayed to patient who voiced understanding and were agreeable to outpatient management and follow up. At the time of discharge the patient was hemodynamically stable, tolerating PO, and mobilizing appropriately. Critical Care <Rishi Almaraz MD - Last Filed: 09/20/23 15:56> Critical Care Time Critical Care Time: No
[2023-09-20] MEDS: LACTATED RINGERS 1000ML 1,000 ML 999 ML IV (14:12)
[2023-09-20] MEDS: IPRATROPIUM/ALBUTEROL 3 ML NEB 6 ML IH (14:12)
[2023-09-20] MEDS: METHYLPREDNISOLONE SOD SUCC 125MG VIAL 125 MG IV (14:12)
--- NOTE | 2023-09-20 14:13 | ECG_ITS ---
APPROVED REPORT Exam: Resting ECG HR:101 bpm ECG Measurements Heart Rate 101 AXES TX 129 P 58 QRSd 126 QRS 14 QT 340 T 53 QTc 398 Conclusion SINUS TACHYCARDIA RIGHT BUNDLE BRANCH BLOCK [120+ ms QRS DURATION, UPRIGHT V1, 40+ ms S IN I/aVL/V4/V5/V6] ABNORMAL ECG UNCONFIRMED REPORT Electronically signed by : Maikel Daniel MD 09/21/2023 08:52:06
[2023-09-20 14:24] LABS: Basophils # 0.1 K/mm3 (0-0.2); Basophils % 0.9 % (0.1-2.0); Eosinophils # 0.3 K/mm3 (0.0-0.4); Hematocrit 41.8 % (42.0-52.0); Hemoglobin 13.8 g/dL (14.1-18.0); Lymphocytes # 2.4 K/mm3 (0.7-4.5); Lymphocytes % 15.6 % (10-50); Mean Corpuscular HGB Conc 32.9 g/dL (31.8-35.4); Mean Corpuscular Hemoglobin 28.2 pg (27.0-31.2); Mean Corpuscular Volume 85.6 fl (80-94); Mean Platelet Volume 7.6 fl (7.4-10.4); Monocytes % 6.6 % (1.7-9.3); Neutrophils # 11.7 K/mm3 (1.8-7.8); Platelet Count 418 K/mm3 (142-424); Red Blood Count 4.89 M/mm3 (4.60-6.20); Red Cell Distribution Width 13.8 % (11.5-17.5); White Blood Count 15.5 K/mm3 (4.8-10.8)
[2023-09-20 14:26] LABS: MANUAL DIFFERENTIAL MANUAL DIFFERENTIAL (MANUAL DIFF)
[2023-09-20 14:32] LABS: Coronavirus 19, PCR Not Detected (NotDetected); Influenza A, PCR Not Detected (NotDetected); Influenza B, PCR Not Detected (NotDetected)
[2023-09-20 14:36] LABS: Alanine Aminotransferase 19 U/L (12-78); Albumin Level 3.4 g/dl (3.5-5.0); Alkaline Phosphatase 77 U/L (38-126); Anion Gap 4.5 mEq/L (5-15); Aspartate Amino Transferase 19 U/L (17-59); Bilirubin,Total 0.5 mg/dl (0.2-1.3); Blood Urea Nitrogen 11 mg/dl (9-20); Calcium 8.5 mg/dl (8.4-10.2); Carbon Dioxide 33 mmol/L (22.0-30.0); Chloride 97 mmol/L (98-107); Creatinine Clearance Estimated 115 mL/min (50-200); Estimated Glomerular Filt Rate 89 ml/min (>60); GFR (African American) 107 ML/MIN (>60); Globulin 3.4 g/dL (1.3-3.2); Glucose 263 mg/dl (74-100); Potassium 4.5 mmoL/L (3.5-5.1); Sodium 130 mmol/L (136-145); Total Protein,Serum 6.8 g/dl (6.3-8.2)
[2023-09-20 14:42] LABS: D-Dimer 0.46 ug/mL (0.0-0.5)
[2023-09-20 15:00] VITALS: BP 143/82; PULSE 116; RESP 18; O2SAT 97
[2023-09-20 15:04] LABS: Lymphocytes % 22 % (10-50); Monocytes % 5 % (2-9); Neutrophils % 73 % (42-76); Platelet Estimate Normal; RBC Morphology Normal; Total Cells Counted 100
--- NOTE | 2023-09-20 15:35 | XR_ITS ---
PROCEDURE INFORMATION: Exam: XR Chest Exam date and time: 09/20/2023 3:43 PM Age: 53 years old Clinical indication: Cough and other: Leukocytosis; Additional info: Cough, leukocytosis TECHNIQUE: Imaging protocol: Radiologic exam of the chest. Views: 2 views. COMPARISON: SHOULDER RT WO CON 07/13/2022 4:46 PM FINDINGS: Lungs: There is a retrocardiac consolidation concerning for left lower lobe pneumonia. Pleural spaces: No large effusion or pneumothorax. Heart/Mediastinum: No evidence of mediastinal widening or cardiac silhouette enlargement; the mediastinum and heart appear within normal limits for contour and size. Bones/joints: No evidence of acute osseous abnormalities within the visualized portions of the thoracic spine and ribs. Osseous structures appear appropriate for patient age. IMPRESSION: There is a retrocardiac consolidation concerning for left lower lobe pneumonia.
[2023-09-20 16:00] VITALS: BP 132/68; PULSE 106; RESP 18; O2SAT 95
[2023-09-20] MEDS: CEFTRIAXONE SODIUM 2 GM in 0.9 % SODIUM CHLORIDE 100 ML IV (16:09)
[2023-09-20 16:52] VITALS: BP 135/84; PULSE 115; RESP 18; TEMP 36.8; O2SAT 97
== END 2023-09-20 16:53 | disposition home or self-care (01) ==
PROVIDERS: Emergency Medicine; Emergency Provider Emergency Medicine; PCP Internal Medicine
DX: R06.02 Shortness of breath (principal); R05.9 Cough, unspecified; R09.81 Nasal congestion; B34.9 Viral infection, unspecified; I45.19 Other right bundle-branch block; F17.210 Nicotine dependence, cigarettes, uncomplicated; R00.0 Tachycardia, unspecified
CPT/HCPCS: 71046; 80053; 85007; 85025; 85378; 87636; 93005; 96361; 96365; 96375; 99285; J0696

== ENCOUNTER 2023-12-02 13:25 | Outpatient (CLI) | payer OTHER, SELFPAY ==
[2023-12-02 13:29] LABS: Basophils # 0.1 K/mm3 (0-0.2); Basophils % 1.2 % (0.1-2.0); Eosinophils # 0.2 K/mm3 (0.0-0.4); Eosinophils % 1.7 % (0.1-12.0); Hematocrit 46.6 % (42.0-52.0); Hemoglobin 15.4 g/dL (14.1-18.0); Lymphocytes # 2.7 K/mm3 (0.7-4.5); Lymphocytes % 23.9 % (10-50); Mean Corpuscular HGB Conc 33.1 g/dL (31.8-35.4); Mean Corpuscular Hemoglobin 29.2 pg (27.0-31.2); Mean Corpuscular Volume 88.3 fl (80-94); Monocytes # 0.8 K/mm3 (0.1-1.0); Monocytes % 6.7 % (1.7-9.3); Neutrophils # 7.6 K/mm3 (1.8-7.8); Neutrophils % 66.6 % (37.0-80.0); Platelet Count 247 K/mm3 (142-424); Red Blood Count 5.28 M/mm3 (4.60-6.20); Red Cell Distribution Width 14.6 % (11.5-17.5); White Blood Count 11.3 K/mm3 (4.8-10.8)
[2023-12-02 13:46] LABS: Alanine Aminotransferase 19 U/L (12-78); Albumin Level 4.3 g/dl (3.5-5.0); Albumin/Globulin Ratio 1.7 (1.1-1.8); Alkaline Phosphatase 74 U/L (38-126); Anion Gap 11.3 mEq/L (5-15); Aspartate Amino Transferase 19 U/L (17-59); Bilirubin,Total 0.4 mg/dl (0.2-1.3); Blood Urea Nitrogen 21 mg/dl (9-20); Calcium 9.9 mg/dl (8.4-10.2); Carbon Dioxide 29 mmol/L (22.0-30.0); Chloride 99 mmol/L (98-107); Estimated Glomerular Filt Rate 118 ml/min (>60); GFR (African American) 143 ML/MIN (>60); Globulin 2.5 g/dL (1.3-3.2); Glucose 331 mg/dl (74-100); Potassium 4.3 mmoL/L (3.5-5.1); Sodium 135 mmol/L (136-145); Total Protein,Serum 6.8 g/dl (6.3-8.2)
== END 2023-12-02 23:59 ==
LOC: LAB.DROPOF 13:25
PROVIDERS: PCP Internal Medicine; Visit Provider Internal Medicine
DX: E11.69 Type 2 diabetes mellitus with other specified complication (principal); N52.1 Erectile dysfunction due to diseases classified elsewhere; Z79.84 Long term (current) use of oral hypoglycemic drugs
CPT/HCPCS: 80053; 85025

== ENCOUNTER 2023-12-23 07:23 | Outpatient (CLI) | payer OTHER, SELFPAY ==
[2023-12-23] VITALS (9 sets, daily range): BP systolic 92–133; BP diastolic 55–90; PULSE 69–98; RESP 16–18; TEMP 36.6; O2SAT 99–100; BMI 26.1
--- NOTE | 2023-12-23 07:23 | CT_ITS ---
APPROVED REPORT Steward/Stewardess Banquet: CLINICAL INDICATION Chest Pain TECHNIQUE Image Acquisition: A 128 slice MDCT scanner ([employer] View) was used for data acquisition. A noncontrast coronary calcium scan was performed. A CT attenuation threshold of 130 Hounsfield units (HU) was used for the detection of calcium in contiguous voxels of 1 sq mm in area to be counted as individual lesions. Bolus tracking in the ascending aorta with a threshold of 180 HU was performed. Immediately afterwards, ECG synchronized cardiac CT was then performed from the cardiac base to apex using retrospective gating with ECG tube current modulation. A total of 85 mL of Isovue 370 mg/mL contrast medium was administered at 5 mL/sec followed by a saline flush using a biphasic injection protocol. A tube voltage of 120 KVp was used. The patient received the following medications prior to the cardiac CT. 150 mg of oral metoprolol 5 mg of intravenous metoprolol 15 mg of oral ivabradine 0.8 mg of sublingual nitroglycerin The average heart rate at the time of acquisition was 72 bpm and regular. Image Reconstruction Transaxial images were reconstructed at 0.67 mm slide thickness. Data was reviewed interactively on an advanced workstation capable of 2 and 3-dimensional displays in all conventional reconstruction formats, including multiplanar reformations, maximum intensity projections, curved multiplanar reformations, and volume rendered reconstructions. When applicable, selected routine images describing the relevant coronary anatomy and pathology were saved and sent to PACS. Complications None Technical Quality Overall image quality was fair. Coronary artery opacification was adequate. Total DLP (Dose-Length Product) is 1245.6 mGy-cm. The reported value represents the total of one or more individual components during the CT acquisition of this date and at this time, and as such, the same value may appear in more than one CT report depending on the interpreting/reporting physicians. COMPARISON None FINDINGS CT Coronary Calcium Scoring LMA (Left Main Artery) = 0 LAD (Left Anterior Descending) = 0 LCX (Left Coronary Circumflex) = 0 RCA (Right Coronary Artery) = 65 Total Calcium Score = 65 using the AJ-130 method. The observed calcium score of 65 is at 95th percentile for subjects of the same age, sex, and race/ethnicity. The interpretation of the calcium heart score is based on the following continuum*: 0 = no calcified plaque detected (risk of coronary artery disease is very low ??? less than 5%) 1-10 = calcium detected in extremely minimal levels (risk of coronary diseases is still low ??? less than 10%) 11-100 = mild levels of plaque detected with certainty (mild or minimal narrowing of heart arteries is likely) 101-400 = definite,at least moderate levels of plaque detected (relatively high risk of a heart attack within 3-5 years) >401-999 = extensive levels of plaque detected (high risk of heart attack, high levels of vascular disease are present, high likelihood of at least one significant coronary narrowing) *The calcium heart score quantifies the burden of coronary calcification/plaque in the coronary arteries. The calcium heart score is not able to evaluate the presence or burden of non-calcified (i.e. soft) plaque. There is no identifiable calcification in the aortic valve, mitral annulus or mitral valve, pericardium, or myocardium. Coronary CT Angiography The coronary arterial system is right dominant. Quantitative Stenosis Grading: Left Main (LM): The left main originates normally from the left sinus of Valsalva. The LM bifurcates into the left anterior descending artery and left circumflex artery. The LM is patent with no evidence of atherosclerosis. Left Anterior Descending (LAD) and Diagonal Branches: The LAD gives off 2 diagonal branches. The LAD and its branches are patent with no evidence of atherosclerosis. There is no evidence of LAD-myocardial bridge. Left Circumflex (LCX) and Obtuse Marginals (OM): The LCX gives off 1 Obtuse Marginal (OM) branch. The LCX and its branches are patent with no evidence of atherosclerosis. Right Coronary Artery (RCA): The RCA originates normally from the right sinus of Valsalva. The RCA gives off a posterior descending artery (PDA) and posterolateral (PL) branches. There is mixed calcified/noncalcified plaque noted in the proximal RCA, with < 25% luminal stenosis. Non-Coronary Cardiac Findings: Analysis of the left ventricular (LV) structure and function was performed after 3-D reconstruction of the LV from axial images, with user-corrected automatic contouring for assessment of LV volumes and user-defined reconstruction from oblique planes for measurement of 3-D cardiac structure and function. -The left ventricle systolic function is low-normal (LVEF 52%). -There is no left atrial appendage filling defect. Two right pulmonary veins and two left pulmonary veins drain normally into the left atrium. -No pericardial thickening or calcification. -Central and branch pulmonary arteries in the [id number] are unremarkable. -Thoracic aorta within the visualized thoracic aortic-branches in the [id number] is unremarkable. Extracardiac Structures -Calcified mediastinal lymphadenopathy is present. IMPRESSION -Presence of coronary calcification with an Agatston score = 65 using the AJ-130 method. -The observed calcium score of 65 is at 95th percentile for subjects of the same age, sex, and race/ethnicity. -Mild non-obstructive coronary artery disease present. No evidence of significant flow-limiting atherosclerosis of the coronary arteries. -CAD-RADS 1. Management recommendations per ACC/AHA guidelines*, as clinically appropriate. -Calcified mediastinal lymphadenopathy is incidentally noted. Clinical correlation is suggested. *Recommendations: CAD RADS 0: Reassurance. Consider non-atherosclerotic causes of chest pain. CAD RADS 1: Consider non-atherosclerotic causes of chest pain. Consider preventive therapy and risk factor modification. CAD RADS 2: Consider non-atherosclerotic causes of chest pain. Consider preventive therapy and risk factor modification, particularly for patients with nonobstructive plaque in multiple segments. CAD RADS 3: Consider further functional testing. Consider symptom-guided anti-ischemic and preventive pharmacotherapy as well as risk factor modification per published guideline statements. CAD RADS 4A: Consider further functional testing or invasive coronary angiography with revascularization per published guideline statements. Consider symptom-guided anti-ischemic and preventive pharmacotherapy as well as risk factor modification per published guideline statements. CAD RADS 4B: Invasive coronary angiography recommended with revascularization per published guideline statements. Consider symptom-guided anti-ischemic and preventive pharmacotherapy as well as risk factor modification per published guideline statements. CAD RADS 5: Consider invasive angiography and/or viability assessment with revascularization per published guideline statements. Consider symptom-guided anti-ischemic and preventive pharmacotherapy as well as risk factor modification per published guideline statements. CRITICAL RESULT None COMMUNICATION Per this written report The coronary and cardiac findings of this CCTA were reviewed, reported, and signed by Johnnie Carmen MD ([employer]) Conclusion Electronically signed by : Kylie Carmen MD 12/25/2023 16:40:44
[2023-12-23] MEDS: METOPROLOL TARTRATE 50MG TABLET *IVABRADINE+METOPROLOL REGIMINE 75 MG PO (07:55)
[2023-12-23] MEDS: IVABRADINE HCL 7.5MG TABLET *IVABRADINE+METOPROLOL REGIMINE 15 MG PO (07:55)
[2023-12-23] MEDS: METOPROLOL TARTRATE 50MG TABLET *IVABRADINE+METOPROLOL REGIMINE 50 MG PO (08:50)
[2023-12-23] MEDS: METOPROLOL TARTRATE 25MG TABLET *IVABRADINE+METOPROLOL REGIMINE 25 MG PO (08:51)
[2023-12-23] MEDS: METOPROLOL TARTRATE 5MG/5ML VIAL *IVABRADINE+METOPROLOL REGIMINE 5 MG IV (09:34)
[2023-12-23] MEDS: NITROGLYCERIN 0.4MG SL TABLET 0.800000000000000044 MG SL (09:34)
[2023-12-23] MEDS: SODIUM CHLORIDE 0.9% 10ML SYR (RAD ONLY) 10 ML IV (09:44)
[2023-12-23] MEDS: IOPAMIDOL-370 (76%);100ML BOTTLE 85 ML IV (09:45)
[2023-12-23] MEDS: 0.9 % SODIUM CHLORIDE 50 ML VIAL IV (09:45)
[2023-12-23 15:00] LABS: POC Glucose,Bedside 83 (70-110)
== END 2023-12-23 10:42 | disposition home or self-care (01) ==
PROVIDERS: PCP Internal Medicine; Visit Provider Internal Medicine
DX: R07.9 Chest pain, unspecified (principal); E11.69 Type 2 diabetes mellitus with other specified complication; Z79.84 Long term (current) use of oral hypoglycemic drugs
CPT/HCPCS: 75571; 75574; 82962; Q9967

== ENCOUNTER 2024-04-21 11:25 | Outpatient (CLI) | payer OTHER, SELFPAY ==
[2024-04-21 19:05] LABS: Direct LDL Cholesterol 43.34 mg/dL (100-129)
[2024-04-21 19:40] LABS: Cholesterol 145 mg/dl (140-200)
[2024-04-21 19:47] LABS: Chol/HDL Ratio 1.7 (1-3.5); HDL Cholesterol 84 mg/dl (40-60); Triglycerides 79 mg/dl (30-150); VLDL Cholesterol 16 mg/dL (0-40)
[2024-04-21 20:35] LABS: Creatinine,Urine Random 23 mg/dL (Not Estab.)
[2024-04-21 20:39] LABS: Microalbumin < 6.000 mg/L (0-16.7)
== END 2024-04-21 23:59 | disposition home or self-care (01) ==
LOC: LAB.DROPOF 04-22 14:02
PROVIDERS: PCP Internal Medicine; Visit Provider Internal Medicine
DX: R73.03 Prediabetes (principal); E66.3 Overweight; Z68.28 Body mass index [BMI] 28.0-28.9, adult
CPT/HCPCS: 80061; 82043; 82570

== ENCOUNTER 2024-10-01 14:50 | Outpatient (CLI) | payer OTHER, SELFPAY ==
[2024-10-01 18:35] LABS: Hemoglobin A1C 6.5 % (4.0-6.0)
[2024-10-01 19:57] LABS: Thyroid Stimulating Hormone 3.24 uIU/mL (0.465-4.68)
== END 2024-10-01 23:59 | disposition home or self-care (01) ==
LOC: LAB.DROPOF 10-02 10:09
PROVIDERS: PCP Internal Medicine; Visit Provider Internal Medicine
DX: E11.9 Type 2 diabetes mellitus without complications (principal); Z79.85 Long-term (current) use of injectable non-insulin antidiabetic drugs
CPT/HCPCS: 83036; 84443

== ENCOUNTER 2024-11-24 11:32 | Emergency (ER) | payer OTHER, SELFPAY ==
[2024-11-24] VITALS (7 sets, daily range): BP systolic 117–161; BP diastolic 65–103; PULSE 96–139; RESP 18–26; TEMP 36.7–36.9; O2SAT 95–100; BMI 30.1
[2024-11-24 11:42] LABS: Coronavirus 19, PCR Not Detected (NotDetected); Influenza B, PCR Not Detected (NotDetected)
[2024-11-24] MEDS: ACETAMINOPHEN 500MG TAB 1000 MG PO (11:53)
[2024-11-24] MEDS: ONDANSETRON 4MG ODT 4 MG SL (11:53)
[2024-11-24] MEDS: IBUPROFEN 400 MG TABLET 800 MG PO (11:53)
--- NOTE | 2024-11-24 12:11 | XR_ITS ---
FINAL REPORT CLINICAL HISTORY: cough, tachycardia, malaise COMPARISON: 09/20/2023 FINDINGS: 2 views of the chest were obtained . The heart is normal in size. The mediastinum is within normal limits. The lungs are clear. There is no pneumothorax. Osseous structures are unremarkable. IMPRESSION: No acute cardiopulmonary process. Reviewed, Interpreted and Dictated by Tj Wahl MD Transcribed by Minerva Paulson Authenticated and [facility]
[2024-11-24 12:17] LABS: Influenza A, PCR Detected (NotDetected)
[2024-11-24 12:36] LABS: Basophils # 0.2 K/mm3 (0-0.2); Basophils % 1.2 % (0.1-2.0); Eosinophils # 0.1 K/mm3 (0.0-0.4); Eosinophils % 0.5 % (0.1-12.0); Hemoglobin 15.6 g/dL (14.1-18.0); Lymphocytes # 1.6 K/mm3 (0.7-4.5); Lymphocytes % 9.9 % (10-50); Mean Corpuscular HGB Conc 34.7 g/dL (31.8-35.4); Mean Corpuscular Hemoglobin 29.8 pg (27.0-31.2); Mean Corpuscular Volume 85.9 fl (80-94); Mean Platelet Volume 9.2 fl (7.4-10.4); Monocytes # 1.7 K/mm3 (0.1-1.0); Monocytes % 10.6 % (1.7-9.3); Neutrophils # 11.4 K/mm3 (1.8-7.8); Neutrophils % 73.2 % (37.0-80.0); Platelet Count 221 K/mm3 (142-424); Red Blood Count 5.24 M/mm3 (4.60-6.20); Red Cell Distribution Width 13.1 % (11.5-17.5); White Blood Count 15.6 K/mm3 (4.8-10.8)
[2024-11-24 12:38] LABS: MANUAL DIFFERENTIAL MANUAL DIFFERENTIAL (MANUAL DIFF)
[2024-11-24] MEDS: IPRATROPIUM/ALBUTEROL 3 ML NEB 9 ML IH (12:40)
[2024-11-24] MEDS: LACTATED RINGERS 1000ML 1,000 ML 999 ML IV (12:40)
[2024-11-24] MEDS: METHYLPREDNISOLONE SOD SUCC 125MG VIAL 125 MG IV (12:40)
[2024-11-24 12:43] LABS: Albumin Level 4.4 g/dl (3.5-5.0); Chloride 91 mmol/L (98-107); Potassium 3.8 mmoL/L (3.5-5.1); Sodium 128 mmol/L (136-145)
[2024-11-24 12:45] LABS: Lactate Venous 1.9 mmol/L (0.4-2.0); VBG Base Excess 1.2 mmol/L (-2.4-2.3); VBG HCO3 26.3 mmol/L (23-30); VBG Oxygen Saturation 69.5 % (50-70); VBG PCO2 45.4 mmol/L (35-51); VBG PH 7.38 mmol/L (7.31-7.41); VBG PO2 36.6 mmol/L (28-40); VBG Total CO2 27.7 mmol/L (23-27)
[2024-11-24 12:46] LABS: Alanine Aminotransferase 45 U/L (12-78); Albumin/Globulin Ratio 1.8 (1.1-1.8); Alkaline Phosphatase 76 U/L (38-126); Anion Gap 10.8 mEq/L (5-15); Aspartate Amino Transferase 33 U/L (17-59); Bilirubin,Total < 0.1 mg/dl (0.2-1.3); Blood Urea Nitrogen 19 mg/dl (9-20); Calcium 9.4 mg/dl (8.4-10.2); Carbon Dioxide 30 mmol/L (22.0-30.0); Creatinine Clearance Estimated 109 mL/min (50-200); Estimated Glomerular Filt Rate 78 ml/min (>60); GFR (African American) 95 ML/MIN (>60); Globulin 2.4 g/dL (1.3-3.2); Glucose 294 mg/dl (74-100); Total Protein,Serum 6.8 g/dl (6.3-8.2)
[2024-11-24 12:47] LABS: Magnesium 1.5 mg/dl (1.6-2.3)
--- NOTE | 2024-11-24 12:47 | HMH.EDGENADL ---
Discharge Plan Disposition Patient Disposition: Home, Self-Care Prescriptions Prescriptions: New doxycycline hyclate 100 mg capsule 100 mg PO BID 5 Days Qty: 10 0RF prednisone 20 mg tablet 40 mg PO DAILY 5 Days Qty: 10 0RF No Action tadalafil 5 mg tablet 5 mg PO DAILY PRN (Reason: sexual activity) 30 Days Qty: 10 3RF Rx Instructions: administer approximately 30min before sexual activity; do not use more than 1 dose per 24hrs albuterol sulfate 90 mcg/actuation HFA aerosol inhaler 1 inh inhalation Q4-6H PRN (Reason: shortness of breath or wheezing) Qty: 6.7 0RF cariprazine 1.5 mg capsule 1.5 mg PO DAILY Qty: 30 2RF Mounjaro 2.5 mg/0.5 mL pen injector See Rx Instructions .ROUTE .COMPLEX Qty: 2 0RF Dose Instruction: INJECT 1 PEN-INJECTOR SUBCUTANEOUSLY ONCE WEEKLY FOR DIABETES FOR 4 WEEKS Rx Instructions: INJECT 1 PEN-INJECTOR SUBCUTANEOUSLY ONCE WEEKLY FOR DIABETES FOR 4 WEEKS lisinopril 20 mg tablet 20 mg PO DAILY 90 Days Qty: 90 4RF omeprazole 40 mg capsule,delayed release(DR/EC) See Rx Instructions .ROUTE .COMPLEX Qty: 90 1RF Dose Instruction: TAKE 1 CAPSULE BY MOUTH DAILY Rx Instructions: TAKE 1 CAPSULE BY MOUTH DAILY chlorthalidone 25 mg tablet 25 mg PO DAILY Qty: 30 2RF atorvastatin 10 mg tablet See Rx Instructions .ROUTE .COMPLEX Qty: 90 0RF Dose Instruction: TAKE 1 TABLET BY MOUTH DAILY Rx Instructions: TAKE 1 TABLET BY MOUTH DAILY Referrals Follow up/Referrals: David Reece DO [Primary Care Provider] - See instructions Activity Restrictions/Add. Instructions Additional Instructions/Restrictions: Call your family doctor to establish care for this visit to the emergency department and schedule follow-up within 48 hours to ensure improvement. If you have any worsening of your condition or any other concerning signs or symptoms, return to the emergency department or your primary care doctor for further evaluation. Antibiotic twice daily for 5 days, steroid once daily for 5 days in the morning after waking up Clinical Impressions Clinical Impression: Influenza A Print Language Print Language: Turkmen Discharge ED Provider: Lamberto Castillo General Adult HPI General Chief complaint: Upper Respiratory Infection Stated complaint: persistant cough ba Time Seen by Provider: 11/24/24 11:48 Mode of Arrival: Ambulatory Source of Information: Patient Description of Symptoms (Recalled from ER Triage Doc. by RN): pt states hes been feeling like crap for two days, with cough and flu like s/s, pt has not takne any otc meds History of Present Illness HPI narrative: Please note that above description of symptoms, in this electronic medical record under categorization of recalled from ER triage doctor by RN are reflective of an initial nursing assessment, however, is not reflective of my full history and physical exam that was personally taken and clarified. Consequentially, this preceding description of symptoms, which may include the patient's categorized chief complaint in the EMR, do not reflect my personal clinical impression, and the ultimate description of history of present illness and patient stated complaints should be deferred to this section of the note. Unless stated otherwise or congruent with this section of the note, additional signs, symptoms, or incongruence should be interpreted as inaccurate with my clinical impression. Related Data Previous Rx's ?Medication ?Instructions ?Recorded tadalafil 5 mg tablet 5 mg PO DAILY PRN sexual activity 07/01/23 30 days #10 tabs albuterol sulfate 90 mcg/actuation 1 inh inhalation Q4-6H PRN 05/05/24 aerosol inhaler shortness of breath or wheezing #6.7 grams cariprazine 1.5 mg capsule 1.5 mg PO DAILY #30 caps 10/08/24 atorvastatin 10 mg tablet See Rx Instructions .Route 11/09/24 .COMPLEX #90 tabs chlorthalidone 25 mg tablet 25 mg PO DAILY #30 tabs 11/09/24 lisinopril 20 mg tablet 20 mg PO DAILY 90 days #90 tabs 11/09/24 omeprazole 40 mg capsule,delayed See Rx Instructions .Route 11/09/24 release .COMPLEX #90 caps tirzepatide 2.5 mg/0.5 mL See Rx Instructions .Route 11/09/24 subcutaneous pen injector .COMPLEX #2 mL (Mounjaro) doxycycline hyclate 100 mg capsule 100 mg PO BID 5 days #10 caps 11/24/24 prednisone 20 mg tablet 40 mg (2 x 20 mg) PO DAILY 5 days 11/24/24 #10 tabs Allergies Allergy/AdvReac Type Severity Reaction Status Date / Time Sulfa (Sulfonamide AdvReac Verified 11/19/24 13:50 Antibiotics) [facility] Disclaimer: The information contained in this section may have been updated after the patient was seen, as this information can be updated by other users. Medical History Acute viral syndrome Wheezing Viral respiratory infection Hypertension Diabetes Social History Smoking Status: Current every day smoker tobacco type: cigarettes packs per day: 1 and e-cigarettes alcohol intake: current alcohol intake frequency: holidays/special occasions only substance use type: denies use current occupational status: employed Travel in the last 8 weeks: None caffeine: No Have you lived/traveled outside [place] in past 30 days?: No Contact w/someone who lives/traveled outside [place] past 30 days?: No Exposure to someone with infectious disease in past 14 days?: No Do you have a fever (greater than 100.4 F or 38 C)?: No Have you tested positive for COVID-19: No Exposed to someone with COVID-19 in past 14 days?: No Do you have a sore throat?: No Do you have a cough?: Yes Do you have any weakness?: No Do you have any diarrhea?: No Are you experiencing any unusual bleeding?: No Do you have any muscle aches/pain?: No Do you have any abdominal pain?: No Are you experiencing loss of taste or smell?: No Other Medical History Have you received the Flu Vaccine for this season: No Have you received the Pneumonia Vaccine: No ROS Obtained: Yes All systems reviewed & no additional complaints except as documented Physical Exam General General appearance: alert and in no apparent distress Head Head exam: atraumatic and normocephalic Eye Eye exam: Present normal appearance, PERRL and EOMI Neck Neck exam: Present normal inspection, full ROM and trachea midline Respiratory Respiratory exam: Present wheezes (Very minimal end expiratory wheezes) and other (Speaking in full sentences, nontachypneic); Absent respiratory distress, stridor, accessory muscle use or prolonged expiratory phase Cardiovascular Cardiovascular exam: Present normal rhythm, tachycardia and other (Pulses equal symmetric in upper and lower extremities) Abdominal Exam Abdominal exam: Present soft; Absent distention, tenderness or pulsatile mass Extremities Exam Extremities exam: Absent edema Neurological Exam Neurological exam: Present alert, oriented X3 and CN II-XII intact; Absent motor sensory deficit Skin Skin exam: Present warm and dry; Absent diaphoresis or erythema Medical Decision Making Medical Records Medical records reviewed: Yes I reviewed the patient's medical records. Screening: Per USPSTF and CDC recommendations, given the prevalence of disease in our region, it is our hospital?s policy to screen for HIV and viral Hepatitis for all patients aged 18 and over and those with ongoing risk factors. Bladimir Inquiry Pt receiving controlled substance: No Bladimir was queried for this patient: No Vital Signs: 11/24/24 11:40 11/24/24 12:00 11/24/24 12:30 Temperature 98.4 F Temperature Source Oral Pulse Rate 139 H 128 H Pulse Rate [Left Radial] 137 H Respiratory Rate 22 Blood Pressure 155/98 H 136/86 Blood Pressure [Right Arm] 161/103 H Blood Pressure Mean 110 100 Blood Pressure Mean [Right Arm] 122 Blood Pressure Source Blood Pressure Position 02 Sat by Pulse Oximetry 98 97 97 Oxygen Delivery Method Room Air 11/24/24 13:00 11/24/24 13:30 11/24/24 14:30 Temperature Temperature Source Pulse Rate 131 H 96 H 126 H Pulse Rate [Left Radial] Respiratory Rate 26 H 20 Blood Pressure 142/81 H 120/103 H 117/65 Blood Pressure [Right Arm] Blood Pressure Mean 101 105 Blood Pressure Mean [Right Arm] Blood Pressure Source Automatic Cuff Blood Pressure Position Sitting 02 Sat by Pulse Oximetry 100 97 96 Oxygen Delivery Method Room Air Lab Data Lab Results 11/24/24 11:36: SARS-CoV-2 (PCR) Not detected, Influenza A Untype (PCR) Detected A, Influenza Type B (PCR) Not detected 11/24/24 12:12: VBG pH 7.38, VBG pCO2 45.4, VBG pO2 36.6, VBG HCO3 26.3, VBG Total CO2 27.7 H, VBG O2 Saturation 69.5, VBG Base Excess 1.2, VBG Lactic Acid 1.9 11/24/24 12:24: WBC 15.6 H, RBC 5.24, Hgb 15.6, Hct 45.0, MCV 85.9, MCH 29.8, MCHC 34.7, RDW 13.1, Plt Count 221, MPV 9.2, Neut % (Auto) 73.2, Lymph % (Auto) 9.9 L, [place] % (Auto) 10.6 H, Eos % (Auto) 0.5, Baso % (Auto) 1.2, Neut # (Auto) 11.4 H, Lymph # (Auto) 1.6, [place] # (Auto) 1.7 H, Eos # (Auto) 0.1, Baso # (Auto) 0.2, Total Counted 100, Neutrophils % (Manual) 78 H, Lymphocytes % (Manual) 17, Monocytes % (Manual) 3, Eosinophils % (Manual) 2, Platelet Estimate Normal, RBC Morphology Normal, APTT 25.9, D-Dimer 0.38, Sodium 128 L, Potassium 3.8, Chloride 91 L, Carbon Dioxide 30, Anion Gap 10.8, BUN 19, Creatinine 1.00, Estimated Creat Clear 109, Estimated GFR 78, Est GFR ( Amer) 95, Glucose 294 H, Calcium 9.4, Magnesium 1.5 L, Total Bilirubin < 0.1 L, AST 33, ALT 45, Alkaline Phosphatase 76, Troponin I < 0.01, Total Protein 6.8, Albumin 4.4, Globulin 2.4, Albumin/Globulin Ratio 1.8, TSH 3.71, Thyroxine (T4) 10.5 11/24/24 12:24 11/24/24 12:24 Orders (Tests/Meds): ED MEDICATIONS Discontinued Medications Generic Name Dose Route Start Last Admin Trade Name Vladimir PRN Reason Stop Dose Admin Acetaminophen 1,000 mg 11/24/24 11:49 11/24/24 11:53 Acetaminophen 500mg Tab PO 11/24/24 11:50 1,000 mg ONCE ONE Administration Albuterol/Ipratropium 9 ml 11/24/24 12:11 11/24/24 12:40 Ipratropium/Albuterol 3 Ml Neb IH 11/24/24 12:12 9 ml ONCE ONE Administration Doxycycline Hyclate 100 mg 11/24/24 12:52 11/24/24 13:11 Doxycycline Hycl 100 Mg Tablet PO 11/24/24 12:53 100 mg ONCE ONE Administration Lactated Ringer's 1,000 mls @ 999 mls/hr 11/24/24 12:12 11/24/24 12:40 Lactated Ringer's 1000 Ml Bag IV 11/24/24 13:12 999 mls/hr .Q1H1M ONE Administration Magnesium Sulfate 2 gm in 50 mls @ 50 mls/hr 11/24/24 13:04 11/24/24 13:11 Magnesium Sulfate 2gm/50ml Premix IV 11/24/24 14:03 50 mls/hr ONCE ONE Administration Ibuprofen 800 mg 11/24/24 11:49 11/24/24 11:53 Ibuprofen 400 Mg Tablet PO 11/24/24 11:50 800 mg ONCE ONE Administration Methylprednisolone Sodium Succinate 125 mg 11/24/24 12:11 11/24/24 12:40 Methylprednisolone Sod Succ 125mg Vial IV 11/24/24 12:12 125 mg ONCE ONE Administration Ondansetron HCl 4 mg 11/24/24 11:49 11/24/24 11:53 Ondansetron 4mg Odt SL 11/24/24 11:50 4 mg ONCE ONE Administration ORDERS Category Date Time Status CXR 2 view (NOT portable) [XR chest 2V] Stat Exams 11/24/24 12:11 Completed POCUS Point of Care (ER Only) Stat Exams 11/24/24 14:31 Ordered Complete Blood Count Auto Diff Stat Lab 11/24/24 12:24 Completed Comprehensive Metabolic Panel Stat Lab 11/24/24 12:24 Completed D-Dimer Stat Lab 11/24/24 12:24 Completed Magnesium Stat Lab 11/24/24 12:24 Completed PTT [Activated Partial Thrombo Time] Stat Lab 11/24/24 12:24 Completed Rapid PCR Covid and Flu A/B Stat Lab 11/24/24 11:36 Completed T4 (Thyroxine) Stat Lab 11/24/24 12:24 Completed TSH [Thyroid Stimulating Hormone] Stat Lab 11/24/24 12:24 Completed Troponin I Q3H Lab 11/24/24 15:15 Ordered Troponin I Q3H Lab 11/24/24 18:15 Ordered Troponin I Stat Lab 11/24/24 12:24 Completed Blood Culture Stat Micro 11/24/24 12:40 Received Venous Blood Gas Stat RT 11/24/24 12:12 Completed HEART Score History (anamnesis): Slightly suspicious ECG: Non-specific disturbance Age: 45-65 years Risk factors: 3 or more risk factors Troponin: </= normal limit HEART Score: 4 Medical Decision Narrative: 54-year-old male coming in feeling like crap. States this has been going on for 2 or 3 days, cough, body aches. Cough is nonproductive. No shortness of breath, chest pain, nausea, vomiting, fevers or chills that he knows of. States he has been eating well. Trying to stay hydrated. History was obtained via conversation with patient. On arrival, patient hemodynamically stable, alert, oriented x4, appropriate, GCS 15, moving all extremities spontaneously, pupils equal and reactive to light. Full physical exam performed and significant for 54-year-old male no acute distress. Speaking full sentences, pleasant. Lungs with minimal end expiratory wheezes. He is tachycardic with no murmurs gallops or rubs. No lower extremity edema. Pulses equal and symmetric. Grossly neurologically intact. Differential includes pneumonia, bronchitis, sepsis, other viral syndrome, less likely to be PE, pneumothorax, among others. Patient placed on continuous cardiac monitoring and continuous pulse ox with initial blood pressure 161/103, heart rate 137, saturation 97% on room air. Patient was given fluid bolus, steroids, DuoNebs for symptomatic management and correction of underlying abnormalities. Workup independently interpreted and significant for leukocytosis 15,000 with neutrophilia and elevated monocytes consistent with early infection. Blood gas with nonactionable findings normal pH/CO2/O2/bicarb/lactate. Chemistry with isolated hyponatremia, it seems patient has been mildly to moderately hyponatremic for quite a while. Influenza positive. Patient given doxycycline p.o., concern for COPD exacerbation and developing pulmonary infection. On independent interpretation of imaging, no acute lobar pneumonia. No evidence of pneumothorax. He does have what appears to be interstitial pneumonia, also to be treated by Doxy. See radiology read for full review of final results. Heart score 4 On reevaluation, patient states he is feeling at her, currently asymptomatic despite being tachycardic 1 20-1 30 and mildly tachypneic 22 to 25 breaths/min. Admission was discussed, patient opting for home-going. Prior to home-going, bedside ultrasound was performed and interpreted by me. Cardiac ultrasound with mildly hyperdynamic heart, but no evidence of obstructive process, normal parasternal long and short axis. No evidence of effusion. Apical four-chamber with no acute findings. Tissue perfusion reassessment performed within 3 hours, patient mentating, following commands, good capillary refill and hemodynamically stable. Given patient presentation, workup, history, this most likely represents interstitial pneumonia. Because patient at baseline without signs or symptoms of clinical decompensation, deemed appropriate for discharge. Results were relayed to patient who voiced understanding and were agreeable to outpatient management and follow up. I discussed my clinical impression with patient and answered all questions. At this time, the evidence for any other entities in the differential is insufficient to warrant any further testing or ED observation. This was explained as well. Advisory was given that persistent or worsening symptoms require further evaluation. I confirmed the understanding of this discussion. [employer] disclaimer Much of this encounter note is an electronic rehab aid spoken language to printed text. Electronic rehab aid of the spoken language may permit errors. Although I have reviewed the note, some errors may still exist. Procedures Limited Ultrasound Indication:: Limited cardiac ultrasound Indication: This of breath, persistent tachycardia Identified cardiac views: -Cardiac parasternal long axis -Cardiac parasternal short axis -Cardiac apical four-chamber Findings: -Cardiac activity present -Gross wall motion normal -Pericardial effusion absent -Right heart strain absent Impression: -Normal cardiac ultrasound Images were saved to permanent archive The study was technically adequate CPT: 09686 This study was performed by me, and I personally interpreted all images/videos. Based on my clinical judgement, these images were adequate and did not necessitate further imaging Critical Care Critical Care Time Critical Care Time: Yes (Infectious, cardiac) Attestation: On 11/24/24, the high probability of a clinically significant, sudden or life threatening deterioration of the following system(s) required my full and direct attention, intervention and personal management. The time I documented below is in addition to time spent performing reported procedures but includes the following listed in this critical care notation. Total Time Total Critical Care Time: 35
[2024-11-24 12:52] LABS: Activated Partial Thrombo Time 25.9 seconds (22.8-30.6)
[2024-11-24 12:56] LABS: Eosinophils % 2 % (0-3); Lymphocytes % 17 % (10-50); Monocytes % 3 % (2-9); Neutrophils % 78 % (42-76); RBC Morphology Normal; Total Cells Counted 100
[2024-11-24 12:57] LABS: Platelet Estimate Normal
--- NOTE | 2024-11-24 12:57 | PC.NURSE ---
pt taken to radiology via wheelchair
[2024-11-24 13:00] LABS: D-Dimer 0.38 ug/mL (0.0-0.5)
[2024-11-24 13:03] LABS: Troponin I < 0.01 ng/ml (0.00-0.034)
[2024-11-24 13:05] LABS: T4 (Thyroxine) 10.5 ug/dl (5.53-11.0)
--- NOTE | 2024-11-24 13:10 | PC.NURSE ---
pt back in room from radiology.
[2024-11-24] MEDS: MAGNESIUM SULFATE IN WATER 2 GM/50 ML PIGGYBACK IV (13:11)
[2024-11-24] MEDS: DOXYCYCLINE HYCL 100 MG TABLET PO (13:11)
--- NOTE | 2024-11-24 13:11 | PC.NURSE ---
returned from radiology
[2024-11-24 13:17] LABS: Thyroid Stimulating Hormone 3.71 uIU/mL (0.465-4.68)
--- NOTE | 2024-11-24 13:41 | ECG_ITS ---
APPROVED REPORT Exam: Resting ECG HR:130 bpm ECG Measurements Heart Rate 130 AXES MN 135 P 59 QRSd 124 QRS -43 QT 327 T 63 QTc 404 Conclusion SINUS TACHYCARDIA LEFT AXIS DEVIATION [QRS AXIS < -30] RIGHT BUNDLE BRANCH BLOCK [120+ ms QRS DURATION, UPRIGHT V1, 40+ ms S IN I/aVL/V4/V5/V6] ABNORMAL ECG UNCONFIRMED REPORT Electronically signed by : TAJ GREGORIO, 11/25/2024 05:53:17
== END 2024-11-24 14:55 | disposition home or self-care (01) ==
PROVIDERS: Emergency Provider Emergency Medicine; PCP Internal Medicine
DX: J10.1 Influenza due to other identified influenza virus with other respiratory manifestations (principal); R05.9 Cough, unspecified; M54.9 Dorsalgia, unspecified; M79.10 Myalgia, unspecified site; F17.210 Nicotine dependence, cigarettes, uncomplicated
CPT/HCPCS: 71046; 80053; 82803; 83735; 84436; 84443; 84484; 85007; 85025; 85027; 85378; 85730; 87040; 87636; 93005; 96361; 96365; 96374; 99291; J2919; J3475; J7120; J7620; Q0162

== ENCOUNTER 2025-04-14 11:57 | Outpatient (POV) | payer OTHER, SELFPAY ==
--- NOTE | 2025-04-14 12:07 | A.OFFVIS_ITS ---
HPI Data of Consult Patient: new to practice Consult date: 04/14/25 Requesting Physician: Jelly Ordaz APRN Primary Care Provider: Maikel Roberts MD Reason for consult: Right shoulder pain History of present illness: Mr. Holloway is a 55 year old male who presents today as a new patient. 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 Patient rates his pain today a 10 out of 10 and states it is all they are at he has right shoulder related to a tire. He does state that this has been going on for at least 3 months or more. He states that he ended up seeing Dr. Ordaz's office here at [facility] where he was getting injections and they did typically help providing roughly 60% relief and lasting 2 to 3 months. He does state that it has been several months since he has had any injection would like to see about getting scheduled back for these. He does state that it does help his overall function with decreased pain once he has had these procedures. He denies any falls or injuries that initially started this. He does describe it as an achy sensation with occasional sharp shooting pains and it is worse with increased activity or movement. Patient does state the pain interferes with his ability perform activities of daily living such as cooking and cleaning. Patient denies any prior surgical intervention and does state that they were trying to hope to hold off having any surgery with the injections. Patient denies any heart or kidney issues. He does state that he has tried [id number] Tylenol along with heat and ice and topicals with minimal changes. Patient is very active and states he does at home exercise with no additional changes. Patient is a diabetic. His Bladimir has been reviewed and is appropriate. Pain at rest (0-10 scale): 10 Has patient had previous pain injection?: No Conservative treatment options previously tried: Home exercise plan (Longer than 12 weeks) cc:: CC: Jelly Ordaz APRN [facility] Disclaimer: The information contained in this section may have been updated after the patient was seen, as this information can be updated by other users. Medical History Acute viral syndrome Wheezing Viral respiratory infection Hypertension Diabetes Social History Smoking Status: Current every day smoker tobacco type: cigarettes packs per day: 1 and e-cigarettes alcohol intake: current alcohol intake frequency: holidays/special occasions only substance use type: denies use current occupational status: employed Travel in the last 8 weeks?: None caffeine: No Review of Systems Review of Systems Review of systems:: pertinent systems reviewed and negative unless documented below Review of systems (narrative): Review of Systems: General: No recent weight changes, no fever, no sleep disturbances Respiratory: No cough, no shortness of air, no recurring pulmonary infections Cardiovascular/peripheral vascular: No chest pain, no palpitations, no edema, no shortness of breath Gastrointestinal: No new onset incontinence, normal bowel movements reported Genitourinary: No new onset incontinence Musculoskeletal: Right shoulder pain Psychiatric: [Normal mood/affect] Neurological: [Denies weakness in extremities], [denies balance issues] Meds Home Medications and Allergies Home Medications ?Medication ?Instructions ?Recorded ?Confirmed ?Type tadalafil 5 mg tablet 5 mg PO DAILY PRN sexual act ivity 07/01/23 11/24/24 Rx 30 days #10 tabs cariprazine 1.5 mg capsule 1.5 mg PO DAILY #30 caps 11/24/24 Rx lisinopril 20 mg tablet 20 mg PO DAILY 90 days #90 t abs 11/09/24 11/24/24 Rx omeprazole 40 mg capsule,delayed See Rx Instructions . Route 11/09/24 11/24/24 Rx release .COMPLEX #90 caps doxycycline hyclate 100 mg capsule 100 mg PO BID 5 day s #10 caps 11/24/24 Rx prednisone 20 mg tablet 40 mg (2 x 20 mg) PO DAILY 5 days 11/24/24 Rx #10 tabs albuterol sulfate 90 mcg/actuation 1 inh inhalation Q4 -6H PRN 12/01/24 Rx aerosol inhaler shortness of breath or wheez ing #6.7 grams tirzepatide 2.5 mg/0.5 mL See Rx Instructions .Route 0 02/26/25 Rx subcutaneous pen injector .COMPLEX #2 mL (Mounjaro) chlorthalidone 25 mg tablet 25 mg PO DAILY #30 tabs Rx atorvastatin 10 mg tablet See Rx Instructions .Route 0 03/29/25 Rx .COMPLEX #30 tabs New Prescriptions to Start Prescriptions: Allergies Allergy/AdvReac Type Severity Reaction Status Date / Time Sulfa (Sulfonamide AdvReac Verified 11/19/24 13:50 Antibiotics) Objective Narrative: Physical Exam: General: Alert and oriented x3, no acute distress, pleasant and cooperative Lungs: Respirations even and unlabored, symmetrical chest expansion Eyes: PERRL Musculoskeletal: Flexion and extension of right shoulder somewhat guarded secondary to pain Neurological: Speech clear, no gross sensory deficit Additional findings Additional findings: FINDINGS: Bones/joints: No acute fracture. Mild degenerative changes of acromioclavicular joint. No dislocation. Few small cysts within greater tuberosity. Fluid: Small joint effusion. Small to moderate fluid within subacromial-subdeltoid bursa. Glenoid labrum: Degenerative-type tear of superior labrum. Supraspinatus tendon: Moderate to severe tendinosis. No full-thickness tear. Infraspinatus tendon: Moderate to severe tendinosis. No full-thickness tear. Subscapularis tendon: Moderate tendinosis. No full-thickness tear. Teres minor tendon: Mild tendinosis. No full-thickness tear. Tendon of biceps brachii: Severe tendinosis of intra-articular portion of tendon. Glenohumeral ligaments: Grossly intact. Muscles: Small cyst at infraspinatus musculotendinous junction. Soft tissues: Unremarkable. IMPRESSION: 1. Rotator cuff tendinosis. 2. Biceps tendinosis. Assessment and Plan *Assessment and plan (1) Adhesive capsulitis of right shoulder: Status: Acute Category: Medical Code(s): M75.01 - Adhesive capsulitis of right shoulder (2) Right shoulder pain: Status: Acute Category: Medical Code(s): M25.511 - Pain in right shoulder (3) Biceps tendinitis of right shoulder: Status: Acute Category: Medical Code(s): M75.21 - Bicipital tendinitis, right shoulder (4) Right rotator cuff tendinitis: Status: Acute Category: Medical Code(s): M75.81 - Other shoulder lesions, right shoulder Plan Patient did have significant pain with limited range of motion of his right shoulder during today's visit. I did discuss with him regarding the risk and benefits of right shoulder intra-articular injection. He would like to proceed forward with this plan of care. Patient has tried and failed conservative therapy including oral medication, heat ice, topicals, at home stretching exercise for longer than 12 weeks. This pain has been present for longer than 3 months. Patient has had prior shoulder injections that did provide with his last injection 60% relief lasting 3 months. Patient denies any recent injections over the last 3 months. Patient believes the last injection was around November. Patient was given at home physician guided exercises for his right shoulder pain during our visit today. I will also send in a 2-week dose of diclofenac 75 mg twice daily. He was counseled to discontinue the Advil while he tries this medication or any other NSAIDs and to take it with food to minimize GI upset. Patient agrees with this plan of care. We did discuss the possibility of compound cream and he would like to try the medication first. Patient will be scheduled for a right shoulder intra-articular injection without fluoroscopic or ultrasound guidance. Patient has been instructed to contact the clinic with any concerns before the next appointment. Dr. Puri has reviewed this note and agrees with this plan of care. This note was dictated using voice recognition software and make contain errors or omissions. All injections are used with Lidocaine, Bupivacaine and dexamethasone. Occasionally urine drug screen is needed to verify patient's compliance with our office pain contract. This is ordered based off specific treatments related to chronic pain with the potential to abuse certain medications.
[2025-04-14 13:19] VITALS: BP 116/81; PULSE 110; RESP 18; O2SAT 96; BMI 29.7
== END 2025-04-14 23:59 | disposition home or self-care (01) ==
PROVIDERS: PCP Family Medicine; Visit Provider Nurse Practitioner Family
DX: M75.01 Adhesive capsulitis of right shoulder (principal); M75.21 Bicipital tendinitis, right shoulder; Z79.1 Long term (current) use of non-steroidal anti-inflammatories (NSAID)
CPT/HCPCS: 99202; G0463

== ENCOUNTER 2025-05-18 13:44 | Outpatient (POV) | payer OTHER, SELFPAY ==
[2025-05-18 13:53] VITALS: BP 127/82; PULSE 108; RESP 18; O2SAT 97; BMI 30.1
[2025-05-18] MEDS: LIDOCAINE 1% 5ML PF VIAL 5 ML (14:09)
[2025-05-18] MEDS: DEXAMETHASONE 10MG/ML 1ML VIAL 10 MG (14:09)
[2025-05-18] MEDS: BUPIVACAINE 0.25% 10ML INJ 25 MG IJ (14:10)
[2025-05-18 14:11] VITALS: BP 127/85; PULSE 114; RESP 18; O2SAT 97
[2025-05-18 14:13] VITALS: BP 122/77; PULSE 109; RESP 18; O2SAT 97
--- NOTE | 2025-05-18 14:13 | EXP.PAIN.PRO ---
Procedure Date: 05/18/25 Time: 14:00 Anesthesiologist:: Juan Jensen CRNA Complications:: None Pre-procedure Diagnosis:: DJD right shoulder. Chronic right shoulder pain. Post-procedure Diagnosis:: Same. Indications for Procedure:: Patient is a very pleasant 55-year-old male who comes our clinic today for right intra-articular shoulder injection of cortisone and local anesthetic. Patient describes right shoulder pain as constant, dull, aching. Patient has 5/5 strength in his right arm. However, limited range of motion secondary to right shoulder pain. He rates his pain 7/10. Procedure Details:: Procedure Details: Right shoulder intra-articular injection Informed consent was obtained risk and benefits of the procedure were explained to the patient. Patient was taken to the procedure room. The right shoulder was prepped using ChloraPrep. A 25-gauge needle was used posteriorly to inject 10 mL bupivacaine 0.25% and 10 mg of dexamethasone. Patient tolerated procedure well with no complications. Plan and Disposition:: Patient was discharged without incident.
== END 2025-05-18 14:13 | disposition home or self-care (01) ==
PROVIDERS: PCP Nurse Practitioner Family; Visit Provider Nurse Anesthetist, Certified Registered
DX: M25.511 Pain in right shoulder (principal)
CPT/HCPCS: 20610; J0665; J1100; J2003

== ENCOUNTER 2025-05-24 20:39 | Emergency (ER) | payer OTHER, SELFPAY ==
[2025-05-24 21:27] VITALS: BP 113/75; PULSE 133; RESP 18; TEMP 36.9; O2SAT 99; BMI 30.1
--- NOTE | 2025-05-24 21:31 | XR_ITS ---
PROCEDURE INFORMATION: Exam: XR Right Foot Exam date and time: 05/24/2025 9:28 PM Age: 55 years old Clinical indication: Pain; Foot; Right; Additional info: Right toe pain, hemorrhagic bulla TECHNIQUE: Imaging protocol: Radiologic exam of the right foot. Views: 3 or more views. COMPARISON: No relevant prior studies available. FINDINGS: Bones/joints: There is an intra-articular fracture at the base of the 1st proximal phalanx. The remainder of the osseous structures are intact and normally aligned. Soft tissues: Diffuse soft tissue swelling of the foot is noted. IMPRESSION: 1. Nondisplaced intra-articular fracture at the base of the 1st proximal phalanx. 2. Diffuse soft tissue swelling of the foot.
[2025-05-24 21:36] VITALS: BP 113/75; PULSE 133; RESP 18; TEMP 36.9; O2SAT 99
--- NOTE | 2025-05-24 21:54 | ED_ITS ---
Discharge Plan Disposition Patient Disposition: Home, Self-Care Prescriptions Prescriptions: New doxycycline hyclate 100 mg tablet 100 mg PO BID 5 Days Qty: 10 0RF No Action tadalafil 5 mg tablet 5 mg PO DAILY PRN (Reason: sexual activity) 30 Days Qty: 10 3RF Rx Instructions: administer approximately 30min before sexual activity; do not use more than 1 dose per 24hrs Vraylar 3 mg capsule 3 mg PO DAILY Qty: 30 2RF lisinopril 20 mg tablet 20 mg PO DAILY 90 Days Qty: 90 4RF omeprazole 40 mg capsule,delayed release(DR/EC) See Rx Instructions .ROUTE .COMPLEX Qty: 90 1RF Dose Instruction: TAKE 1 CAPSULE BY MOUTH DAILY Rx Instructions: TAKE 1 CAPSULE BY MOUTH DAILY albuterol sulfate 90 mcg/actuation HFA aerosol inhaler 1 inh inhalation Q4-6H PRN (Reason: shortness of breath or wheezing) Qty: 6.7 0RF Mounjaro 2.5 mg/0.5 mL pen injector See Rx Instructions .ROUTE .COMPLEX Qty: 2 2RF Dose Instruction: INJECT 1 PEN-INJECTOR SUBCUTANEOUSLY ONCE WEEKLY FOR DIABETES FOR 4 WEEKS Rx Instructions: INJECT 1 PEN-INJECTOR SUBCUTANEOUSLY ONCE WEEKLY FOR DIABETES FOR 4 WEEKS atorvastatin 10 mg tablet See Rx Instructions .ROUTE .COMPLEX Qty: 30 0RF Dose Instruction: TAKE 1 TABLET BY MOUTH DAILY Rx Instructions: TAKE 1 TABLET BY MOUTH DAILY chlorthalidone 25 mg tablet 25 mg PO DAILY Qty: 90 3RF diclofenac sodium 75 mg tablet,delayed release (DR/EC) 75 mg PO BID Qty: 28 0RF Referrals Follow up/Referrals: Quinton Lucas APRN [Primary Care Provider, Family Practice] - See instructions Kayla Ramos DPM [Staff Physician, Podiatry] - See instructions Activity Restrictions/Add. Instructions Additional Instructions/Restrictions: Please follow-up with our podiatry team. Please take Tylenol and ibuprofen as needed for pain. Recommend staying off the foot much as possible. Clinical Impressions Clinical Impression: Fracture of proximal phalanx of toe of right foot Stand Alone Forms Stand Alone Forms: Work/School Release Print Language Print Language: Sinhala Discharge ED Provider: Malissa Savage General Adult HPI <MARLON Toure - Last Filed: 05/24/25 22:18> General Chief complaint: Extremity Injury, Lower Stated complaint: R Toe Injury;Edema Time Seen by Provider: 05/24/25 21:23 Mode of Arrival: Ambulatory Source of Information: Patient Description of Symptoms (Recalled from ER Triage Doc. by RN): Pt presents to ED with c/o right big toe pain. Pt stated around 1900 he started to feel pain randomly in his toe and took his boot off and noticd a large blister like spot on his big toe. Pt states the toe did not have this place this morning when he was putting his shoes on for work. History of Present Illness HPI narrative: 55-year-old male presents the emergency department with right great toe pain, patient denies any injury or trauma per history, he states around 1900 he began experiencing pain in his right great toe, denies any fever chills chest pain shortness of breath nausea vomiting constipation diarrhea, has cough is chronic for him, denies congestion, no urinary type symptomatology, denies any abdominal pain, patient states he did not notice this when putting his shoes on , for work this morning. Triage vitals notable for tachycardia 133 bpm, SpO2 within normal limits, afebrile, and is a current everyday smoker, denies any alcohol or drug use, other past medical history is consistent with FOSTER, hypertension, ANNITA, MDD, diabetic gastroparesis, T2DM, BPH. Please note that above description of symptoms, in this electronic medical record under categorization of recalled from ER triage doctor by RN are reflective of an initial nursing assessment, however, is not reflective of my full history and physical exam that was personally taken and clarified. Consequentially, this preceding description of symptoms, which may include the patient's categorized chief complaint in the EMR, do not reflect my personal clinical impression, and the ultimate description of history of present illness and patient stated complaints should be deferred to this section of the note. Unless stated otherwise or congruent with this section of the note, additional signs, symptoms, or incongruence should be interpreted as inaccurate with my clinical impression. Onset (ago): hour(s) Related Data Previous Rx's ?Medication ?Instructions ?Recorded tadalafil 5 mg tablet 5 mg PO DAILY PRN sexual act ivity 07/01/23 30 days #10 tabs lisinopril 20 mg tablet 20 mg PO DAILY 90 days #90 t abs 11/09/24 omeprazole 40 mg capsule,delayed See Rx Instructions . Route 11/09/24 release .COMPLEX #90 caps albuterol sulfate 90 mcg/actuation 1 inh inhalation Q4 -6H PRN 12/01/24 aerosol inhaler shortness of breath or wheez ing #6.7 grams tirzepatide 2.5 mg/0.5 mL See Rx Instructions .Route 0 02/26/25 subcutaneous pen injector .COMPLEX #2 mL (Mounjaro) atorvastatin 10 mg tablet See Rx Instructions .Route 0 03/29/25 .COMPLEX #30 tabs diclofenac sodium 75 mg 75 mg PO BID #28 tabs tablet,delayed release cariprazine 3 mg capsule (Vraylar) 3 mg PO DAILY #30 c aps 04/20/25 chlorthalidone 25 mg tablet 25 mg PO DAILY #90 tabs doxycycline hyclate 100 mg tablet 100 mg PO BID 5 days #10 tabs 05/25/25 Allergies Allergy/AdvReac Type Severity Reaction Status Date / Time Sulfa (Sulfonamide AdvReac Verified 04/20/25 11:12 Antibiotics) [facility] <MARLON Toure - Last Filed: 05/24/25 22:18> [facility] Disclaimer: The information contained in this section may have been updated after the patient was seen, as this information can be updated by other users. Medical History Acute viral syndrome Wheezing Viral respiratory infection Hypertension Diabetes Family History Other Unknown family medical history Social History Smoking Status: Current every day smoker tobacco type: cigarettes packs per day: 1 and e-cigarettes alcohol intake: current alcohol intake frequency: holidays/special occasions only substance use type: denies use current occupational status: employed Travel in the last 8 weeks?: None caffeine: No Have you lived/traveled outside [place] in past 30 days?: No Contact w/someone who lives/traveled outside US past 30 days?: No Exposure to someone with infectious disease in past 14 days?: No Do you have a fever (greater than 100.4 F or 38 C)?: No Have you tested positive for COVID-19?: No Exposed to someone with COVID-19 in past 14 days?: No Do you have a sore throat?: No Do you have a cough?: No Do you have any weakness?: No Do you have any diarrhea?: No Are you experiencing any unusual bleeding?: No Do you have any muscle aches/pain?: No Do you have any abdominal pain?: No Are you experiencing loss of taste or smell?: No Other Medical History Have you received the Flu Vaccine for this season: No Have you received the Pneumonia Vaccine: No <MARLON Toure - Last Filed: 05/24/25 22:18> ROS Obtained: Yes All systems reviewed & no additional complaints except as documented <Malissa Savage DO - Last Filed: 05/24/25 23:46> ROS Obtained: Yes All systems reviewed & no additional complaints except as documented and Yes Systems reviewed as appropriate & no additional complaints except as documented Physical Exam <MARLON Toure - Last Filed: 05/24/25 22:18> General General appearance: alert and in no apparent distress Head Head exam: atraumatic and normocephalic Eye Eye exam: Present PERRL and EOMI ENT ENT exam: Present mucous membranes moist Neck Neck exam: Present normal inspection Chest Chest inspection: Present normal inspection and symmetric chest wall rise Respiratory Respiratory exam: Present normal lung sounds bilaterally; Absent respiratory distress Cardiovascular Cardiovascular exam: Present normal rhythm and tachycardia Abdominal Exam Abdominal exam: Present soft; Absent tenderness, guarding or rebound Extremities Exam Extremities exam: Present tenderness and other (There is some decreased range of motion of the patient's right great toe, with some pain palpation to the toe, otherwise neurovascular intact); Absent normal inspection Neurological Exam Neurological exam: Present alert and oriented X3 Psychiatric Psychiatric exam: Present normal affect Skin Skin exam: Present warm, dry and other (Hemorrhagic bulla and vesicles noted on the dorsal aspect of the patient's right great toe) Medical Decision Making <MARLON Toure - Last Filed: 05/24/25 22:18> Medical Records Medical records reviewed: Yes I reviewed the patient's medical records. Screening: Per USPSTF and CDC recommendations, given the prevalence of disease in our region, it is our hospital?s policy to screen for HIV and viral Hepatitis for all patients aged 18 and over and those with ongoing risk factors. Bladimir Inquiry Pt receiving controlled substance: No Bladimir was queried for this patient: No Vital Signs: 05/24/25 21:27 05/24/25 21:36 05/24/25 22:31 Temperature 98.4 F 98.4 F Temperature Source Oral Pulse Rate 133 H 119 H Pulse Rate [Left] 133 H Respiratory Rate 18 18 Blood Pressure 113/75 112/86 Blood Pressure [Left Arm] 113/75 Blood Pressure Mean 94 Blood Pressure Mean [Left Arm] 87 Blood Pressure Source Automatic Cuff Blood Pressure Source [Left Arm] Automatic Cuff Blood Pressure Position Blood Pressure Position [Left Arm] Sitting 02 Sat by Pulse Oximetry 99 99 96 Oxygen Delivery Method Room Air Room Air 05/24/25 23:00 05/24/25 23:30 05/25/25 00:52 Temperature 98.4 F Temperature Source Pulse Rate 119 H 117 H 111 H Pulse Rate [Left] Respiratory Rate 16 Blood Pressure 123/81 118/86 118/86 Blood Pressure [Left Arm] Blood Pressure Mean Blood Pressure Mean [Left Arm] Blood Pressure Source Blood Pressure Source [Left Arm] Blood Pressure Position Sitting Blood Pressure Position [Left Arm] 02 Sat by Pulse Oximetry 95 96 Oxygen Delivery Method Room Air Lab Data Lab Results 05/24/25 22:10: WBC 17.5 H, RBC 4.89, Hgb 14.7, Hct 42.1, MCV 86.1, MCH 30.1, MCHC 34.9, RDW 12.9, Plt Count 219, MPV 9.6, Neut % (Auto) 66.3, Lymph % (Auto) 18.4, [place] % (Auto) 8.0, Eos % (Auto) 4.2, Baso % (Auto) 0.9, Neut # (Auto) 11.6 H, Lymph # (Auto) 3.2, [place] # (Auto) 1.4 H, Eos # (Auto) 0.7 H, Baso # (Auto) 0.2, ESR 22 H, PT 10.3, INR 0.92, APTT 25.7, Sodium 128 L, Potassium 3.6, C hloride 94 L, Carbon Dioxide 28, Anion Gap 9.6, BUN 13, Creatinine 1.00, Estimated Creat Clear 107, Estimated GFR 78, Est GFR ( Amer) 94, Glucose 271 H, Calcium 9.3, Total Bilirubin 0.5, AST 25, ALT 29, Alkaline Phosphatase 63, C-Reactive Protein 12.6 H, Total Protein 6.7, Albumin 4.0, Globulin 2.7, Albumin/Globulin Ratio 1.5 05/24/25 22:10 05/24/25 22:10 Orders (Tests/Meds): ED MEDICATIONS Discontinued Medications Generic Name Dose Route Start Last Admin Trade Name Vladimir PRN Reason Stop Dose Admin Iopamidol 120 ml 05/25/25 00:17 05/25/25 00:18 Iopamidol-370 (76%);100ml Bottle IV 05/25/25 00:18 120 ml ONCE ONE Administration Sodium Chloride 50 ml 05/25/25 00:17 05/25/25 00:18 0.9 % Sodium Chloride 50 Ml Vial IV 05/25/25 00:18 50 ml ONCE ONE Administration Sodium Chloride 10 ml 05/25/25 00:17 05/25/25 00:18 Sodium Chloride 0.9% 10ml Syr (Rad Only) IV 05/25/25 00:18 10 ml ONCE ONE Administration ORDERS Category Date Time Status CT foot RT w con Stat Cat Scan 05/24/25 23:18 Completed XR foot RT min 3V Stat Exams 05/24/25 21:31 Completed CRP [C-Reactive Protein] Stat Lab 05/24/25 22:10 Completed Complete Blood Count Auto Diff Stat Lab 05/24/25 22:10 Completed Comprehensive Metabolic Panel Stat Lab 05/24/25 22:10 Completed ESR [Erythrocyte Sedimentation Rate] Stat Lab 05/24/25 22:10 Completed PT INR [Prothrombin Time INR] Stat Lab 05/24/25 22:10 Completed PTT [Activated Partial Thrombo Time] Stat Lab 05/24/25 22:10 Completed Medical Decision Narrative: 55-year-old male presents the emergency department with right toe pain atraumatic, and lesion/rash noted on his right great toe, differential diagnose include but not limited to, hemorrhagic bulla, coagulopathy, cellulitis, osteomyelitis, herpes zoster, among others. Will obtain basic laboratory studies, ESR CRP, PT/INR and PTT as well as x-ray of the right foot. I discussed this patient's case with the attending physician Dr. Savage at shift change she will be assuming the patient's care/workup <Malissa Savage, DO - Last Filed: 05/24/25 23:46> Vital Signs: 05/24/25 21:27 05/24/25 21:36 05/24/25 22:31 Temperature 98.4 F 98.4 F Temperature Source Oral Pulse Rate 133 H 119 H Pulse Rate [Left] 133 H Respiratory Rate 18 18 Blood Pressure 113/75 112/86 Blood Pressure [Left Arm] 113/75 Blood Pressure Mean 94 Blood Pressure Mean [Left Arm] 87 Blood Pressure Source Automatic Cuff Blood Pressure Source [Left Arm] Automatic Cuff Blood Pressure Position Blood Pressure Position [Left Arm] Sitting 02 Sat by Pulse Oximetry 99 99 96 Oxygen Delivery Method Room Air Room Air 05/24/25 23:00 05/24/25 23:30 05/25/25 00:52 Temperature 98.4 F Temperature Source Pulse Rate 119 H 117 H 111 H Pulse Rate [Left] Respiratory Rate 16 Blood Pressure 123/81 118/86 118/86 Blood Pressure [Left Arm] Blood Pressure Mean Blood Pressure Mean [Left Arm] Blood Pressure Source Blood Pressure Source [Left Arm] Blood Pressure Position Sitting Blood Pressure Position [Left Arm] 02 Sat by Pulse Oximetry 95 96 Oxygen Delivery Method Room Air Lab Data Lab results reviewed: Yes I reviewed the patient's lab results. Lab Results 05/24/25 22:10: WBC 17.5 H, RBC 4.89, Hgb 14.7, Hct 42.1, MCV 86.1, MCH 30.1, MCHC 34.9, RDW 12.9, Plt Count 219, MPV 9.6, Neut % (Auto) 66.3, Lymph % (Auto) 18.4, [place] % (Auto) 8.0, Eos % (Auto) 4.2, Baso % (Auto) 0.9, Neut # (Auto) 11.6 H, Lymph # (Auto) 3.2, [place] # (Auto) 1.4 H, Eos # (Auto) 0.7 H, Baso # (Auto) 0.2, ESR 22 H, PT 10.3, INR 0.92, APTT 25.7, Sodium 128 L, Potassium 3.6, C hloride 94 L, Carbon Dioxide 28, Anion Gap 9.6, BUN 13, Creatinine 1.00, Estimated Creat Clear 107, Estimated GFR 78, Est GFR ( Amer) 94, Glucose 271 H, Calcium 9.3, Total Bilirubin 0.5, AST 25, ALT 29, Alkaline Phosphatase 63, C-Reactive Protein 12.6 H, Total Protein 6.7, Albumin 4.0, Globulin 2.7, Albumin/Globulin Ratio 1.5 Orders (Tests/Meds): ED MEDICATIONS Discontinued Medications Generic Name Dose Route Start Last Admin Trade Name Vladimir PRN Reason Stop Dose Admin Iopamidol 120 ml 05/25/25 00:17 05/25/25 00:18 Iopamidol-370 (76%);100ml Bottle IV 05/25/25 00:18 120 ml ONCE ONE Administration Sodium Chloride 50 ml 05/25/25 00:17 05/25/25 00:18 0.9 % Sodium Chloride 50 Ml Vial IV 05/25/25 00:18 50 ml ONCE ONE Administration Sodium Chloride 10 ml 05/25/25 00:17 05/25/25 00:18 Sodium Chloride 0.9% 10ml Syr (Rad Only) IV 05/25/25 00:18 10 ml ONCE ONE Administration ORDERS Category Date Time Status CT foot RT w con Stat Cat Scan 05/24/25 23:18 Completed XR foot RT min 3V Stat Exams 05/24/25 21:31 Completed CRP [C-Reactive Protein] Stat Lab 05/24/25 22:10 Completed Complete Blood Count Auto Diff Stat Lab 05/24/25 22:10 Completed Comprehensive Metabolic Panel Stat Lab 05/24/25 22:10 Completed ESR [Erythrocyte Sedimentation Rate] Stat Lab 05/24/25 22:10 Completed PT INR [Prothrombin Time INR] Stat Lab 05/24/25 22:10 Completed PTT [Activated Partial Thrombo Time] Stat Lab 05/24/25 22:10 Completed Medical Decision Narrative: 55-year-old male presents the emergency department with right toe pain atraumatic, and lesion/rash noted on his right great toe, differential diagnose include but not limited to, hemorrhagic bulla, coagulopathy, cellulitis, osteomyelitis, herpes zoster, among others. Will obtain basic laboratory studies, ESR CRP, PT/INR and PTT as well as x-ray of the right foot. I discussed this patient's case with the attending physician Dr. Savage at shift change she will be assuming the patient's care/workup. Malissa Savage, I assumed care of the patient at 2200. Patient's labs show mild leukocytosis of 17, hemoglobin stable. ESR 22. INR normal. CMP with mild hyponatremia. Glucose elevated. CRP 12.6. XR reviewed and interpreted by myself and showed fracture of the base of the 1st metatarsal with soft tissue swelling. Hemorrhagic bullae can be fracture blisters, however given that patient is a diabetic, concern for infection therefore CT scan of the foot will be obtained. Patient signed out to the oncoming provider pending CT scan and final dispo. <Patricio Pedroza MD - Last Filed: 05/25/25 02:20> Vital Signs: 05/24/25 21:27 05/24/25 21:36 05/24/25 22:31 Temperature 98.4 F 98.4 F Temperature Source Oral Pulse Rate 133 H 119 H Pulse Rate [Left] 133 H Respiratory Rate 18 18 Blood Pressure 113/75 112/86 Blood Pressure [Left Arm] 113/75 Blood Pressure Mean 94 Blood Pressure Mean [Left Arm] 87 Blood Pressure Source Automatic Cuff Blood Pressure Source [Left Arm] Automatic Cuff Blood Pressure Position Blood Pressure Position [Left Arm] Sitting 02 Sat by Pulse Oximetry 99 99 96 Oxygen Delivery Method Room Air Room Air 05/24/25 23:00 05/24/25 23:30 05/25/25 00:52 Temperature 98.4 F Temperature Source Pulse Rate 119 H 117 H 111 H Pulse Rate [Left] Respiratory Rate 16 Blood Pressure 123/81 118/86 118/86 Blood Pressure [Left Arm] Blood Pressure Mean Blood Pressure Mean [Left Arm] Blood Pressure Source Blood Pressure Source [Left Arm] Blood Pressure Position Sitting Blood Pressure Position [Left Arm] 02 Sat by Pulse Oximetry 95 96 Oxygen Delivery Method Room Air Lab Data Lab Results 05/24/25 22:10: WBC 17.5 H, RBC 4.89, Hgb 14.7, Hct 42.1, MCV 86.1, MCH 30.1, MCHC 34.9, RDW 12.9, Plt Count 219, MPV 9.6, Neut % (Auto) 66.3, Lymph % (Auto) 18.4, [place] % (Auto) 8.0, Eos % (Auto) 4.2, Baso % (Auto) 0.9, Neut # (Auto) 11.6 H, Lymph # (Auto) 3.2, [place] # (Auto) 1.4 H, Eos # (Auto) 0.7 H, Baso # (Auto) 0.2, ESR 22 H, PT 10.3, INR 0.92, APTT 25.7, Sodium 128 L, Potassium 3.6, C hloride 94 L, Carbon Dioxide 28, Anion Gap 9.6, BUN 13, Creatinine 1.00, Estimated Creat Clear 107, Estimated GFR 78, Est GFR ( Amer) 94, Glucose 271 H, Calcium 9.3, Total Bilirubin 0.5, AST 25, ALT 29, Alkaline Phosphatase 63, C-Reactive Protein 12.6 H, Total Protein 6.7, Albumin 4.0, Globulin 2.7, Albumin/Globulin Ratio 1.5 Orders (Tests/Meds): ED MEDICATIONS Discontinued Medications Generic Name Dose Route Start Last Admin Trade Name Freq PRN Reason Stop Dose Admin Iopamidol 120 ml 05/25/25 00:17 05/25/25 00:18 Iopamidol-370 (76%);100ml Bottle IV 05/25/25 00:18 120 ml ONCE ONE Administration Sodium Chloride 50 ml 05/25/25 00:17 05/25/25 00:18 0.9 % Sodium Chloride 50 Ml Vial IV 05/25/25 00:18 50 ml ONCE ONE Administration Sodium Chloride 10 ml 05/25/25 00:17 05/25/25 00:18 Sodium Chloride 0.9% 10ml Syr (Rad Only) IV 05/25/25 00:18 10 ml ONCE ONE Administration ORDERS Category Date Time Status CT foot RT w con Stat Cat Scan 05/24/25 23:18 Completed XR foot RT min 3V Stat Exams 05/24/25 21:31 Completed CRP [C-Reactive Protein] Stat Lab 05/24/25 22:10 Completed Complete Blood Count Auto Diff Stat Lab 05/24/25 22:10 Completed Comprehensive Metabolic Panel Stat Lab 05/24/25 22:10 Completed ESR [Erythrocyte Sedimentation Rate] Stat Lab 05/24/25 22:10 Completed PT INR [Prothrombin Time INR] Stat Lab 05/24/25 22:10 Completed PTT [Activated Partial Thrombo Time] Stat Lab 05/24/25 22:10 Completed Medical Decision Narrative: 55-year-old male presents the emergency department with right toe pain atraumatic, and lesion/rash noted on his right great toe, differential diagnose include but not limited to, hemorrhagic bulla, coagulopathy, cellulitis, osteomyelitis, herpes zoster, among others. Will obtain basic laboratory studies, ESR CRP, PT/INR and PTT as well as x-ray of the right foot. I discussed this patient's case with the attending physician Dr. Savage at shift change she will be assuming the patient's care/workup. Malissa Savage, I assumed care of the patient at 2200. Patient's labs show mild leukocytosis of 17, hemoglobin stable. ESR 22. INR normal. CMP with mild hyponatremia. Glucose elevated. CRP 12.6. XR reviewed and interpreted by myself and showed fracture of the base of the 1st metatarsal with soft tissue swelling. Hemorrhagic bullae can be fracture blisters, however given that patient is a diabetic, concern for infection therefore CT scan of the foot will be obtained. Patient signed out to the oncoming provider pending CT scan and final dispo. Yovany LATIF: I assumed care of the patient at the time of handoff from the prior provider. On reassessment patient is stable. CT scan shows a fracture of the proximal phalanx, no eroded bone or other signs of infection. Patient was placed in a walking boot and encouraged to follow-up with Dr. Ramos for further assessment. Antibiotics were sent by Dr. Savage for coverage of possible infection/prophylaxis. Critical Care <MARLON Toure - Last Filed: 05/24/25 22:18> Critical Care Time Critical Care Time: No
[2025-05-24 22:19] LABS: Hematocrit 42.1 % (42.0-52.0); Hemoglobin 14.7 g/dL (14.1-18.0); Immature Granulocytes % 2.2 %; Mean Corpuscular HGB Conc 34.9 g/dL (31.8-35.4); Mean Corpuscular Hemoglobin 30.1 pg (27.0-31.2); Mean Corpuscular Volume 86.1 fl (80-94); Nucleated Red Blood Cells % 0 %; Platelet Count 219 K/mm3 (142-424); Red Blood Count 4.89 M/mm3 (4.60-6.20); Red Cell Distribution Width-SD 40.3 fL; White Blood Count 17.5 K/mm3 (4.8-10.8)
[2025-05-24 22:28] LABS: Alanine Aminotransferase 29 U/L (12-78); Albumin Level 4.0 g/dl (3.5-5.0); Albumin/Globulin Ratio 1.5 (1.1-1.8); Alkaline Phosphatase 63 U/L (38-126); Anion Gap 9.6 mEq/L (5-15); Aspartate Amino Transferase 25 U/L (17-59); Bilirubin,Total 0.5 mg/dl (0.2-1.3); Blood Urea Nitrogen 13 mg/dl (9-20); Calcium 9.3 mg/dl (8.4-10.2); Carbon Dioxide 28 mmol/L (22.0-30.0); Chloride 94 mmol/L (98-107); Creatinine Clearance Estimated 107 mL/min (50-200); Creatinine,Serum 1.00 mg/dl (0.66-1.25); Estimated Glomerular Filt Rate 78 ml/min (>60); GFR (African American) 94 ML/MIN (>60); Globulin 2.7 g/dL (1.3-3.2); Glucose 271 mg/dl (74-100); Potassium 3.6 mmoL/L (3.5-5.1); Sodium 128 mmol/L (136-145); Total Protein,Serum 6.7 g/dl (6.3-8.2)
[2025-05-24 22:30] LABS: Activated Partial Thrombo Time 25.7 seconds (22.8-30.6)
[2025-05-24 22:31] VITALS: BP 112/86; PULSE 119; O2SAT 96
[2025-05-24 22:31] LABS: INR 0.92 (0.9-1.1); Prothrombin Time 10.3 seconds (10.1-12.5)
[2025-05-24 22:34] LABS: C-Reactive Protein 12.6 mg/L (0-4)
[2025-05-24 23:00] VITALS: BP 123/81; PULSE 119; O2SAT 95
--- NOTE | 2025-05-24 23:18 | CT_ITS ---
PROCEDURE INFORMATION: Exam: CT Right Lower Extremity With Contrast, Foot Exam date and time: 05/25/2025 12:13 AM Age: 55 years old Clinical indication: Pain; Foot; Right; Additional info: Hemorrhagic bullae, eval for infection TECHNIQUE: Imaging protocol: CT of the right lower extremity with intravenous contrast was performed. Exam focused on the foot. Radiation optimization: All CT scans at this facility use at least one of these dose optimization techniques: automated exposure control; mA and/or kV adjustment per patient size (includes targeted exams where dose is matched to clinical indication); or iterative reconstruction. Contrast material: ISOVUE; Contrast volume: 120 ml; Contrast route: IV; COMPARISON: CR Foot R 05/24/2025 9:28 PM FINDINGS: Bones/joints: There is an oblique intra-articular fracture of the proximal 1st phalanx. The remaining osseous structures are intact and normally aligned. Soft tissues: There is soft tissue swelling of the great toe. There is a focal soft tissue lesion measuring 4 x 10 x 10 mm involving the dorsomedial skin at the level of the 1st interphalangeal joint. No abnormal enhancement is noted. IMPRESSION: 1. Nondisplaced oblique intra-articular fracture of the proximal 1st phalanx with associated surrounding soft tissue swelling. 2. Focal skin lesion dorsomedial great toe measuring 4 x 10 x 10 mm. No abnormal enhancement.
[2025-05-24 23:30] VITALS: BP 118/86; PULSE 117; O2SAT 96
[2025-05-25] MEDS: SODIUM CHLORIDE 0.9% 10ML SYR (RAD ONLY) 10 ML IV (00:18)
[2025-05-25] MEDS: 0.9 % SODIUM CHLORIDE 50 ML VIAL IV (00:18)
[2025-05-25] MEDS: IOPAMIDOL-370 (76%);100ML BOTTLE 120 ML IV (00:18)
[2025-05-25 00:52] VITALS: BP 118/86; PULSE 111; RESP 16; TEMP 36.9; O2SAT 99
== END 2025-05-25 00:53 | disposition home or self-care (01) ==
PROVIDERS: Physician Assistant; Emergency Provider Student in an Organized Health Care Education/Training Program; PCP Nurse Practitioner Family
DX: S92.911A Unspecified fracture of right toe(s), initial encounter for closed fracture (principal); M79.674 Pain in right toe(s); E87.1 Hypo-osmolality and hyponatremia; E11.65 Type 2 diabetes mellitus with hyperglycemia; D72.829 Elevated white blood cell count, unspecified; I10 Essential (primary) hypertension; F17.210 Nicotine dependence, cigarettes, uncomplicated; X58.XXXA Exposure to other specified factors, initial encounter
CPT/HCPCS: 73630; 73701; 80053; 85025; 85610; 85651; 85730; 86140; 99284; Q9967